=== PATIENT | male | born 1965 | race Caucasian/White ===

== ENCOUNTER 2022-01-05 00:40 | Emergency (ER) | payer MEDICARE, SELFPAY ==
[2022-01-05 01:00] VITALS: BP 137/75; PULSE 70; RESP 16; TEMP 35.9; O2SAT 100; BMI 19.5
--- NOTE | 2022-01-05 02:14 | ED.SKABFB ---
HPI - Skin/Abscess/Foreign Bdy General Chief complaint: Skin/Abscess/Foreign Body Stated complaint: right elbow pain/insect bite x2 days Time Seen by Provider: 01/05/22 02:03 Source: patient Mode of arrival: Ambulatory History of Present Illness HPI narrative: 56-year-old male nonsmoker with noncontributory medical history presents with pain and swelling on his right elbow in concerned about a spider bite. He denies seeing any insect and denies any injury. He has no fever or chills. States that he has been getting some pus out and when he squeezes there is little coming at this point. He is able to flex and extend his elbow without much in the way of discomfort. He denies any fever, chills, nausea or vomiting nor any red streaks. He is otherwise well and free of complaint. He denies dizziness, weakness or lightheadedness. He has no chest pain or shortness of breath Related Data Home Medications Medication Instructions Recorded Confirmed clonazepam 0.5 mg tablet 1 mg PO BID #0 07/27/11 Previous Rx's Medication Instructions Recorded doxycycline hyclate 100 mg tablet 100 mg PO BID #20 tab 01/05/22 Allergies Allergy/AdvReac Type Severity Reaction Status Date / Time From TORADOL Allergy Unknown STOMACH Uncoded 01/05/22 01:03 UPSET Review of Systems Review of Systems Narrative: GENERAL: Denies chills, fatigue, malaise, fever, sweats. HEENT: Denies sinus pain, ear pain, sore throat, difficulty swallowing, dizziness. RESPIRATORY: Denies dyspnea, cough, wheezing, hemoptysis, sputum. CARDIOVASCULAR: Denies chest pain, palpitations, orthopnea, edema, GASTROINTESTINAL: Denies nausea, vomiting, abdominal pain, diarrhea, constipation, melena. : Denies dysuria, frequency, incontinence, hematuria, urinary retention. MUSCULOSKELETAL: denies weakness, joint pain, or bony pain SKIN: See HPI NEUROLOGIC: Denies weakness, headache, numbness, change in speech, confusion, seizures, incoordination. PSYCHIATRIC: No concerning psychosocial issues. 12 point review of systems is negative except for those stated above Patient History Social History Smoking Status: Never smoker Smoking Status: Never smoker Substance Use Type: former substance user Exam Narrative Exam Narrative: GEN: AOx3 and in mild distress EYES: Pupils are equal, round, and reactive to light and accommodation. Extraoccular muscles are intact bilaterally. There is no subconjunctival hemorrhage or exudate. CHEST: Lungs are clear to auscultation bilaterally and free of wheezes, rales, or rhonchi. Heart rate is regular rhythm, there are no murmurs, clicks, rubs, or gallops. There is no chest wall tenderness. ABD: Abdomen is soft and nontender. There is no guarding or rebound. Bowel sounds are normal in all 4 quadrants. There is no mass or organomegaly. EXT: Full but slightly painful flexion and extension of right elbow at the extremes of range of motion, no pain with pronation or supination, erythema and mild swelling overlying the olecranon with a spontaneously draining abscess and moderate surrounding erythema without fluctuance or induration. Very low suspicion of septic arthritis, no lymphangitis noted SKIN: Warm, pink, and dry. No erythema or rash Initial Vital Signs Initial Vital Signs: Vital Signs Temperature 96.7 F L 01/05/22 01:00 Pulse Rate 70 01/05/22 01:00 Respiratory Rate 16 01/05/22 01:00 Blood Pressure 137/75 01/05/22 01:00 Pulse Oximetry 100 01/05/22 01:00 Course Orders Ordered: Discontinued Medications Doxycycline Hyclate (Doxycycline Hyclate 100 Mg Tablet) 100 mg PO NOW ONE Stop: 01/05/22 02:19 Last Admin: 01/05/22 02:23 Dose: 100 mg Documented by: BRAYAN Vital Signs Vital signs: Vital Signs - 8 hr 01/05/22 01:00 Temperature 96.7 F L Pulse Rate 70 Respiratory Rate 16 Blood Pressure 137/75 Pulse Oximetry 100 MDM - Skin/Abscess/Foreign Bdy MDM Narrative Medical decision making narrative: Patient presents for evaluation of spontaneously draining abscess on right elbow. History and physical are highly suggestive against septic arthritis. He shows no systemic findings and has no lymphangitis. Wound culture obtained, ABX administered here and remainder or Rx to pharmacy. Return precautions discussed and questions answered to his apparent satisfaction Discharge Plan Departure Patient Disposition: Home Clinical Impression: Abscess of skin or subcutaneous tissue Instructions: DI for Skin Abscess Activity Restrictions/Additional Instructions: *You have been diagnosed with [right elbow abscess, spontaneously draining. As we discussed a wound culture has been sent and will take a few days to give results, if there is a change needed we will call you *What to do: *Please continue to take your regular medications as directed. [ x] New medication prescriptions sent to your pharmacy: [[facility] in [place] ] [ ] New medication written as a paper prescription [ ] No new medications given *Please follow up with your primary care provider in 2-3 days, call for an appointment. Let them know you were seen in the Emergency Department and that we ask that you be seen in follow up. We will electronically transmit a record of today's note if your PCP is in our system *If you do not have a primary care provider please contact the [facility] Resource line at [phone]. They will ask some questions about your medical history and help get you set up with a doctor in the community. *Return to Emergency Department if you should have any new, worsening or concerning symptoms, such as [fever greater than 101 F, shaking chills, worsening pain, persistent vomiting or other bothersome symptoms] Prescriptions: New doxycycline hyclate 100 mg tablet 100 mg PO BID Qty: 20 0RF No Action clonazepam 0.5 MG tablet 1 mg PO BID Qty: 0 0RF
[2022-01-05] MEDS: DOXYCYCLINE HYCLATE 100 MG TABLET PO (02:23)
== END 2022-01-05 02:28 | disposition home or self-care (01) ==
PROVIDERS: Emergency Provider Emergency Medicine
DX: L02.413 Cutaneous abscess of right upper limb (principal)
CPT/HCPCS: 87070; 87075; 87077; 87147; 87205; 99283

== ENCOUNTER 2022-01-08 13:25 | Observation (INO) | payer MEDICARE, MEDICAID, SELFPAY ==
[2022-01-08 13:28] VITALS: BP 115/73; PULSE 92; RESP 20; TEMP 36.6; O2SAT 99
--- NOTE | 2022-01-08 14:34 | ED_ITS ---
HPI - Skin/Abscess/Foreign Bdy General Chief complaint: Skin/Abscess/Foreign Body Stated complaint: Infection in arm getting worse- told to come back Time Seen by Provider: 01/08/22 13:56 Source: patient Mode of arrival: Ambulatory Related Data Home Medications Medication Instructions Recorded Confirmed clonazepam 0.5 mg tablet 1 mg PO BID #0 07/27/11 Previous Rx's Medication Instructions Recorded doxycycline hyclate 100 mg tablet 100 mg PO BID #20 tab 01/05/22 Allergies Allergy/AdvReac Type Severity Reaction Status Date / Time From TORADOL Allergy Unknown STOMACH Uncoded 01/05/22 01:03 UPSET Patient History Social History Smoking Status: Never smoker Smoking Status: Never smoker Substance Use Type: former substance user Exam Initial Vital Signs Initial Vital Signs: Vital Signs Temperature 97.8 F 01/08/22 13:28 Pulse Rate 92 H 01/08/22 13:28 Respiratory Rate 20 01/08/22 13:28 Blood Pressure 115/73 01/08/22 13:28 Pulse Oximetry 99 01/08/22 13:28 Course Orders Ordered: ED Orders 01/08/22 14:40 CBC Auto Diff [Complete Blood Count AUTO DIFF] Stat CK [Creatine Kinase] Stat CMP [Comprehensive Metabolic Panel] Stat Lactate (Lactic Acid) Stat PT [Prothrombin Time INR] Stat PTT [Partial Thromboplastin Time] Stat 01/08/22 14:52 Blood Culture Stat 01/08/22 15:10 Wound Culture and Gram Stain Stat 01/08/22 16:25 CT UE RT w con Stat 01/08/22 17:40 COVID19 -Nasal RAPID/Pre-Proc Stat Discontinued Medications Ceftriaxone Sodium 1,000 mg/ (Sodium Chloride) 100 mls @ 200 mls/hr IV NOW ONE Stop: 01/08/22 14:43 Last Infusion: 01/08/22 15:48 Dose: 0 mls/hr Documented by: Admin: 01/08/22 15:22 Dose: 200 mls/hr Documented by: GATO Vancomycin HCl (Vancomycin) 1,000 mg in 200 mls @ 200 mls/hr IV NOW ONE Stop: 01/08/22 15:43 Last Infusion: 01/08/22 16:31 Dose: 0 mls/hr Documented by: Admin: 01/08/22 15:49 Dose: 200 mls/hr Documented by: GATO Vital Signs Vital signs: Vital Signs - 8 hr 01/08/22 13:28 Temperature 97.8 F Pulse Rate 92 H Respiratory Rate 20 Blood Pressure 115/73 Pulse Oximetry 99 MDM - Skin/Abscess/Foreign Bdy Lab Data Result diagrams: 01/08/22 14:40 01/08/22 14:40 Labs: Lab Results 01/08/22 01/08/22 01/08/22 Range/Units 14:40 14:40 14:40 WBC 5.8 (4.5-11.0) X10^3/uL RBC 4.73 (4.5-5.9) X10^6/uL Hgb 13.0 L (13.5-17.5) g/dL Hct 39.2 L (41-53) % MCV 82.9 (80-100) fL MCH 27.4 (26-34) PG MCHC 33.1 (30-36) % RDW 14.0 (11.6-14.8) % Plt Count 208 (150-400) X10^3/uL Neut % (Auto) 72.0 (50-75) % Lymph % (Auto) 13.1 L (25-40) % Craven % (Auto) 11.1 (3-14) % Eos % (Auto) 3.4 (2-4) % Baso % (Auto) 0.4 (0-2) % Neut # (Auto) 4200 (0619-7980) /uL Lymph # (Auto) 800 L (7141-4195) /uL Craven # (Auto) 600 (0-900) /uL Eos # (Auto) 200 (0-450) /uL Baso # (Auto) 0 (0-100) /uL PT (10.1-12.7) SECONDS INR (0.9-1.3) APTT (26.4-36.2) SECONDS Sodium 138 (137-145) mmol/L Potassium 3.8 (3.4-5.1) mmol/L Chloride 101 (98-107) mmol/L Carbon Dioxide 31 (22-32) mmol/L BUN 17 (9-20) mg/dL Creatinine 0.53 L (0.66-1.25) mg/dL Estimated GFR > 60 (>60) mL/min BUN/Creatinine Ratio 32.1 H (6-22) Glucose 114 H (70-100) mg/dL Lactate 0.9 (0.7-2.1) mmol/L Calcium 8.8 (8.4-10.2) mg/dL Total Bilirubin 0.2 (0.2-1.3) mg/dL AST 25 (17-59) IU/L ALT 16 (<50) IU/L Alkaline Phosphatase 68 (38-126) U/L Total Creatine Kinase (55-170) U/L Total Protein 6.8 (6.3-8.2) g/dL Albumin 3.5 (3.5-5.0) g/dL Globulin 3.3 (1.7-4.1) g/dL Albumin/Globulin Ratio 1.1 (1.0-2.8) 01/08/22 01/08/22 Range/Units 14:40 14:40 WBC (4.5-11.0) X10^3/uL RBC (4.5-5.9) X10^6/uL Hgb (13.5-17.5) g/dL Hct (41-53) % MCV (80-100) fL MCH (26-34) PG MCHC (30-36) % RDW (11.6-14.8) % Plt Count (150-400) X10^3/uL Neut % (Auto) (50-75) % Lymph % (Auto) (25-40) % Craven % (Auto) (3-14) % Eos % (Auto) (2-4) % Baso % (Auto) (0-2) % Neut # (Auto) (8363-2203) /uL Lymph # (Auto) (6712-1370) /uL Craven # (Auto) (0-900) /uL Eos # (Auto) (0-450) /uL Baso # (Auto) (0-100) /uL PT 12.3 (10.1-12.7) SECONDS INR 1.1 (0.9-1.3) APTT 34 (26.4-36.2) SECONDS Sodium (137-145) mmol/L Potassium (3.4-5.1) mmol/L Chloride (98-107) mmol/L Carbon Dioxide (22-32) mmol/L BUN (9-20) mg/dL Creatinine (0.66-1.25) mg/dL Estimated GFR (>60) mL/min BUN/Creatinine Ratio (6-22) Glucose (70-100) mg/dL Lactate (0.7-2.1) mmol/L Calcium (8.4-10.2) mg/dL Total Bilirubin (0.2-1.3) mg/dL AST (17-59) IU/L ALT (<50) IU/L Alkaline Phosphatase (38-126) U/L Total Creatine Kinase 53 L (55-170) U/L Total Protein (6.3-8.2) g/dL Albumin (3.5-5.0) g/dL Globulin (1.7-4.1) g/dL Albumin/Globulin Ratio (1.0-2.8) Discharge Plan Departure Patient Disposition: Admitted As Inpatient Clinical Impression: Cellulitis Admit Date/Time: 01/08/22 17:44 Admit Provider: Rafi Cohen
[2022-01-08 15:08] LABS: Add Manual Diff / Slide Review NO; Basophils Absolute Auto 0 /uL (0-100); Basophils Percent Auto 0.4 % (0-2); Eosinophils Absolute Auto 200 /uL (0-450); Eosinophils Percent Auto 3.4 % (2-4); Hematocrit 39.2 % (41-53); Lymphocytes Absolute Auto 800 /uL (1100-4500); Lymphocytes Percent Auto 13.1 % (25-40); Mean Corpuscular HGB Conc 33.1 % (30-36); Mean Corpuscular Hemoglobin 27.4 PG (26-34); Mean Corpuscular Volume 82.9 fL (80-100); Monocytes Absolute Auto 600 /uL (0-900); Monocytes Percent Auto 11.1 % (3-14); Neutrophils Absolute Auto 4200 /uL (1500-7000); Platelet Count 208 X10^3/uL (150-400); Red Blood Cell Count 4.73 X10^6/uL (4.5-5.9); White Blood Cell Count 5.8 X10^3/uL (4.5-11.0)
[2022-01-08 15:10] LABS: INR 1.1 (0.9-1.3); Prothrombin Time 12.3 SECONDS (10.1-12.7)
[2022-01-08 15:13] LABS: PTT Partial Thromboplastin Tim 34 SECONDS (26.4-36.2)
[2022-01-08 15:14] LABS: Lactate (Lactic Acid) 0.9 mmol/L (0.7-2.1)
[2022-01-08 15:15] LABS: Alanine Aminotransferase 16 IU/L (<50); Albumin 3.5 g/dL (3.5-5.0); Albumin Globulin Ratio 1.1 (1.0-2.8); Alkaline Phosphatase 68 U/L (38-126); Aspartate Aminotransferase 25 IU/L (17-59); BUN Creatinine Ratio 32.1 (6-22); Bilirubin Total 0.2 mg/dL (0.2-1.3); Blood Urea Nitrogen 17 mg/dL (9-20); Calcium 8.8 mg/dL (8.4-10.2); Carbon Dioxide 31 mmol/L (22-32); Chloride 101 mmol/L (98-107); Estimated Glomerular Filt Rate > 60 mL/min (>60); Globulin 3.3 g/dL (1.7-4.1); Glucose 114 mg/dL (70-100); HEMOLYSIS < 15 (0-50); Potassium 3.8 mmol/L (3.4-5.1); Sodium 138 mmol/L (137-145); Total Protein 6.8 g/dL (6.3-8.2)
[2022-01-08 15:22] LABS: Creatine Kinase 53 U/L (55-170)
[2022-01-08] MEDS: cefTRIAXone 1,000 MG in SODIUM CHLORIDE 0.9% 100 ML 200 MG IV (15:22)
--- NOTE | 2022-01-08 15:47 | ED.SKABFB ---
HPI - Skin/Abscess/Foreign Bdy <Kimi Copeland PA-C - Last Filed: 01/08/22 17:50> General Chief complaint: Skin/Abscess/Foreign Body Stated complaint: Infection in arm getting worse- told to come back Time Seen by Provider: 01/08/22 13:56 Source: patient Mode of arrival: Ambulatory History of Present Illness HPI narrative: 56-year-old male on Suboxone for opiate use disorder presents to the ED with worsening signs of infection on his right arm. Patient was seen in the ED on 01/05/2022 for the skin infection on the right elbow, discharged home on doxycycline. Patient states he has been taking the antibiotics as prescribed, however his symptoms are worsening. Patient believes he was bitten by an insect, however he did not see the insect. Patient complains of continued drainage of pus at the site of the bite and increased swelling, redness, pain going down from his elbow to his right hand. Patient denies fever, endorses chills. Patient denies chest pain, shortness of breath, nausea, vomiting, abdominal pain, lightheadedness, dizziness, syncope. States that the pain is keeping him from being able to sleep night. Related Data Home Medications Medication Instructions Recorded Confirmed clonazepam 0.5 mg tablet 1 mg PO BID #0 07/27/11 Previous Rx's Medication Instructions Recorded doxycycline hyclate 100 mg tablet 100 mg PO BID #20 tab 01/05/22 Allergies Allergy/AdvReac Type Severity Reaction Status Date / Time From TORADOL Allergy Unknown STOMACH Uncoded 01/05/22 01:03 UPSET Review of Systems <Kimi Copeland PA-C - Last Filed: 01/08/22 17:50> Review of Systems ROS Unobtainable: All systems reviewed & are unremarkable except as noted in HPI and below Constitutional Constitutional: Reports chills, Denies fatigue, Denies fever(s), Denies frequent falls, Denies lethargy and Denies weakness Eyes Eyes: Denies change in vision, Denies eye discharge, Denies irritation and Denies loss of vision ENT Ears, Nose, Mouth, and Throat: Denies change in voice, Denies dizziness, Denies neck pain, Denies sore throat and Denies throat swelling Cardiovascular Cardiovascular: Denies chest pain, Denies irregular heart rhythm, Denies lightheadedness, Denies palpitations, Denies dyspnea, Denies dyspnea on exertion and Denies orthopnea Respiratory Respiratory: Denies cough, Denies dyspnea, Denies dyspnea on exertion and Denies wheezing Gastrointestinal Gastrointestinal: Denies abdominal pain, Denies change in bowel habits, Denies diarrhea, Denies nausea and Denies vomiting Genitourinary Genitourinary: Denies hematuria, Denies flank pain, Denies urinary incontinence and Denies urinary urgency Musculoskeletal Musculoskeletal: Denies back pain, Denies muscle weakness, Denies neck pain, Denies numbness and Denies tingling Integumentary/Breasts Skin/Breast: Denies pruritus, Denies erythema, Denies rash and Denies wounds Comments: Swelling, redness, pain, purulent discharge on right arm. No numbness, tingling, weakness Neurologic Neurologic: Denies behavioral changes, Denies confusion, Denies dizziness, Denies frequent falls, Denies loss of vision, Denies numbness, Denies tingling and Denies weakness Psychiatric Psychiatric: Denies anxiety, Denies behavioral changes, Denies confusion, Denies depression, Denies homicidal ideation and Denies suicidal ideation Endocrine Endocrine: Denies fatigue, Denies flushing and Denies palpitations Hematologic/Lymphatic Hematologic/Lymphatic: Denies easy bruising Allergic/Immunologic Allergic/Immunologic: Denies urticaria, Denies throat swelling and Denies wheezing Patient History <Kimi Copeland PA-C - Last Filed: 01/08/22 17:50> Social History Smoking Status: Never smoker Smoking Status: Never smoker Substance Use Type: former substance user Exam <Kimi Copeland PA-C - Last Filed: 01/08/22 17:50> Initial Vital Signs Initial Vital Signs: Vital Signs Temperature 97.8 F 01/08/22 13:28 Pulse Rate 92 H 01/08/22 13:28 Respiratory Rate 20 01/08/22 13:28 Blood Pressure 115/73 01/08/22 13:28 Pulse Oximetry 99 01/08/22 13:28 Const General: cooperative, healthy appearing and comfortable [facility] Head: normal to inspection Eyes General: Yes appearance normal, both eyes and all related structures Neck Neck: normal visual inspection Resp Effort & Inspection: normal respiratory effort Auscultation: clear to auscultation bilaterally Cardio Rate: regular rate Rhythm: regular rhythm Skin Other: Purulent lesion on right elbow. Swelling, erythema, tenderness to palpation from elbow down to the right hand. Compartments are soft. Full range of motion. Neurovascularly intact. Neuro General: patient alert, patient awake and patient oriented x3 Psych Appearance: grossly normal Mental Status: mental status grossly normal <Carine Huff MD - Last Filed: 01/08/22 17:57> Initial Vital Signs Initial Vital Signs: Vital Signs Temperature 97.8 F 01/08/22 13:28 Pulse Rate 92 H 01/08/22 13:28 Respiratory Rate 20 01/08/22 13:28 Blood Pressure 115/73 01/08/22 13:28 Pulse Oximetry 99 01/08/22 13:28 Course <Kimi Copeland PA-C - Last Filed: 01/08/22 17:50> Orders Ordered: ED Orders 01/08/22 14:40 CBC Auto Diff [Complete Blood Count AUTO DIFF] Stat CK [Creatine Kinase] Stat CMP [Comprehensive Metabolic Panel] Stat Lactate (Lactic Acid) Stat PT [Prothrombin Time INR] Stat PTT [Partial Thromboplastin Time] Stat 01/08/22 14:52 Blood Culture Stat 01/08/22 15:10 Wound Culture and Gram Stain Stat 01/08/22 16:25 CT UE RT w con Stat 01/08/22 17:40 COVID19 -Nasal RAPID/Pre-Proc Stat Discontinued Medications Ceftriaxone Sodium 1,000 mg/ (Sodium Chloride) 100 mls @ 200 mls/hr IV NOW ONE Stop: 01/08/22 14:43 Last Infusion: 01/08/22 15:48 Dose: 0 mls/hr Documented by: Admin: 01/08/22 15:22 Dose: 200 mls/hr Documented by: GATO Vancomycin HCl (Vancomycin) 1,000 mg in 200 mls @ 200 mls/hr IV NOW ONE Stop: 01/08/22 15:43 Last Infusion: 01/08/22 16:31 Dose: 0 mls/hr Documented by: Admin: 01/08/22 15:49 Dose: 200 mls/hr Documented by: GATO Vital Signs Vital signs: Vital Signs - 8 hr 01/08/22 13:28 Temperature 97.8 F Pulse Rate 92 H Respiratory Rate 20 Blood Pressure 115/73 Pulse Oximetry 99 <Carine Huff MD - Last Filed: 01/08/22 17:57> Orders Ordered: ED Orders 01/08/22 14:40 CBC Auto Diff [Complete Blood Count AUTO DIFF] Stat CK [Creatine Kinase] Stat CMP [Comprehensive Metabolic Panel] Stat Lactate (Lactic Acid) Stat PT [Prothrombin Time INR] Stat PTT [Partial Thromboplastin Time] Stat 01/08/22 14:52 Blood Culture Stat 01/08/22 15:10 Wound Culture and Gram Stain Stat 01/08/22 16:25 CT UE RT w con Stat 01/08/22 17:40 COVID19 -Nasal RAPID/Pre-Proc Stat Discontinued Medications Ceftriaxone Sodium 1,000 mg/ (Sodium Chloride) 100 mls @ 200 mls/hr IV NOW ONE Stop: 01/08/22 14:43 Last Infusion: 01/08/22 15:48 Dose: 0 mls/hr Documented by: Admin: 01/08/22 15:22 Dose: 200 mls/hr Documented by: GATO Vancomycin HCl (Vancomycin) 1,000 mg in 200 mls @ 200 mls/hr IV NOW ONE Stop: 01/08/22 15:43 Last Infusion: 01/08/22 16:31 Dose: 0 mls/hr Documented by: Admin: 01/08/22 15:49 Dose: 200 mls/hr Documented by: GATO Vital Signs Vital signs: Vital Signs - 8 hr 01/08/22 13:28 Temperature 97.8 F Pulse Rate 92 H Respiratory Rate 20 Blood Pressure 115/73 Pulse Oximetry 99 MDM - Skin/Abscess/Foreign Bdy <Kimi Copeland PA-C - Last Filed: 01/08/22 17:50> Medical Records Attestation: I reviewed the patient's medical records. Lab Data Attestation: I reviewed the patient's lab results. Lab results narrative: Labs within normal limits. Result diagrams: 01/08/22 14:40 01/08/22 14:40 Labs: Lab Results 01/08/22 01/08/22 01/08/22 Range/Units 14:40 14:40 14:40 WBC 5.8 (4.5-11.0) X10^3/uL RBC 4.73 (4.5-5.9) X10^6/uL Hgb 13.0 L (13.5-17.5) g/dL Hct 39.2 L (41-53) % MCV 82.9 (80-100) fL MCH 27.4 (26-34) PG MCHC 33.1 (30-36) % RDW 14.0 (11.6-14.8) % Plt Count 208 (150-400) X10^3/uL Neut % (Auto) 72.0 (50-75) % Lymph % (Auto) 13.1 L (25-40) % [place] % (Auto) 11.1 (3-14) % Eos % (Auto) 3.4 (2-4) % Baso % (Auto) 0.4 (0-2) % Neut # (Auto) 4200 (6860-9543) /uL Lymph # (Auto) 800 L (5776-2657) /uL [place] # (Auto) 600 (0-900) /uL Eos # (Auto) 200 (0-450) /uL Baso # (Auto) 0 (0-100) /uL PT (10.1-12.7) SECONDS INR (0.9-1.3) APTT (26.4-36.2) SECONDS Sodium 138 (137-145) mmol/L Potassium 3.8 (3.4-5.1) mmol/L Chloride 101 (98-107) mmol/L Carbon Dioxide 31 (22-32) mmol/L BUN 17 (9-20) mg/dL Creatinine 0.53 L (0.66-1.25) mg/dL Estimated GFR > 60 (>60) mL/min BUN/Creatinine Ratio 32.1 H (6-22) Glucose 114 H (70-100) mg/dL Lactate 0.9 (0.7-2.1) mmol/L Calcium 8.8 (8.4-10.2) mg/dL Total Bilirubin 0.2 (0.2-1.3) mg/dL AST 25 (17-59) IU/L ALT 16 (<50) IU/L Alkaline Phosphatase 68 (38-126) U/L Total Creatine Kinase (55-170) U/L Total Protein 6.8 (6.3-8.2) g/dL Albumin 3.5 (3.5-5.0) g/dL Globulin 3.3 (1.7-4.1) g/dL Albumin/Globulin Ratio 1.1 (1.0-2.8) 01/08/22 01/08/22 Range/Units 14:40 14:40 WBC (4.5-11.0) X10^3/uL RBC (4.5-5.9) X10^6/uL Hgb (13.5-17.5) g/dL Hct (41-53) % MCV (80-100) fL MCH (26-34) PG MCHC (30-36) % RDW (11.6-14.8) % Plt Count (150-400) X10^3/uL Neut % (Auto) (50-75) % Lymph % (Auto) (25-40) % [place] % (Auto) (3-14) % Eos % (Auto) (2-4) % Baso % (Auto) (0-2) % Neut # (Auto) (4888-8266) /uL Lymph # (Auto) (9873-2419) /uL [place] # (Auto) (0-900) /uL Eos # (Auto) (0-450) /uL Baso # (Auto) (0-100) /uL PT 12.3 (10.1-12.7) SECONDS INR 1.1 (0.9-1.3) APTT 34 (26.4-36.2) SECONDS Sodium (137-145) mmol/L Potassium (3.4-5.1) mmol/L Chloride (98-107) mmol/L Carbon Dioxide (22-32) mmol/L BUN (9-20) mg/dL Creatinine (0.66-1.25) mg/dL Estimated GFR (>60) mL/min BUN/Creatinine Ratio (6-22) Glucose (70-100) mg/dL Lactate (0.7-2.1) mmol/L Calcium (8.4-10.2) mg/dL Total Bilirubin (0.2-1.3) mg/dL AST (17-59) IU/L ALT (<50) IU/L Alkaline Phosphatase (38-126) U/L Total Creatine Kinase 53 L (55-170) U/L Total Protein (6.3-8.2) g/dL Albumin (3.5-5.0) g/dL Globulin (1.7-4.1) g/dL Albumin/Globulin Ratio (1.0-2.8) Imaging Data CT right upper extremity: Radiologist's Impression: PROCEDURE:? CT UE RT W CON ? INDICATIONS:? ?septic arthritis vs nec fasc vs cellulitis vs bur ? TECHNIQUE:? After the administration of intravenous contrast, 3 mm axial sections acquired of the right upper extremity , with coronal and sagittal reformats. ? ? COMPARISON:? None. ? FINDINGS:? Image quality:? Excellent.? ? Bones:? No acute fracture dislocation.? No osteomyelitis. ? Soft tissues:? Diffuse cellulitic change, left forearm greater than left upper arm.? No soft tissue gas.? No radiopaque foreign body.? No abscess. ? IMPRESSION:? Diffuse cellulitic change.? No evidence of necrotizing fasciitis or abscess. ? ? Dictated by: Caleb Heaton M.D. on 01/08/2022 at 17:12 ? ? Approved by: Caleb Heaton M.D. on 01/08/2022 at 17:15 ? [facility] Narrative Medical decision making narrative: 56-year-old male on Suboxone for opiate use disorder presents to the ED with worsening signs of infection on his right arm. Concern for cellulitis versus septic joint versus septic bursitis. Unlikely necrotizing fasciitis, given physical exam and history. Compartments are soft. Will obtain labs, blood cultures, wound culture, CT with contrast. Will start antibiotics. Will consult Ortho. Will reassess. Labs within normal limits. CT scan was reassuring for no osteomyelitis, soft tissue gas, abscess, foreign body, necritizing fasciitis. CT shows evidence of cellulitic changes. Dr. Sanchez from Ortho was consulted. Per Dr. Sanchez, patient to be NPO after midnight, continue IV antibiotics with vancomycin and ceftriaxone. Dr. Sanchez will see patient for possible OR washout tomorrow morning. Consulted hospitalist Dr. Dempsey, he agreed to admit patient to medicine for continued IV antibiotics. <Carine Huff MD - Last Filed: 01/08/22 17:57> Lab Data Labs: Lab Results 01/08/22 01/08/22 01/08/22 Range/Units 14:40 14:40 14:40 WBC 5.8 (4.5-11.0) X10^3/uL RBC 4.73 (4.5-5.9) X10^6/uL Hgb 13.0 L (13.5-17.5) g/dL Hct 39.2 L (41-53) % MCV 82.9 (80-100) fL MCH 27.4 (26-34) PG MCHC 33.1 (30-36) % RDW 14.0 (11.6-14.8) % Plt Count 208 (150-400) X10^3/uL Neut % (Auto) 72.0 (50-75) % Lymph % (Auto) 13.1 L (25-40) % [place] % (Auto) 11.1 (3-14) % Eos % (Auto) 3.4 (2-4) % Baso % (Auto) 0.4 (0-2) % Neut # (Auto) 4200 (5115-8459) /uL Lymph # (Auto) 800 L (1182-3064) /uL [place] # (Auto) 600 (0-900) /uL Eos # (Auto) 200 (0-450) /uL Baso # (Auto) 0 (0-100) /uL PT (10.1-12.7) SECONDS INR (0.9-1.3) APTT (26.4-36.2) SECONDS Sodium 138 (137-145) mmol/L Potassium 3.8 (3.4-5.1) mmol/L Chloride 101 (98-107) mmol/L Carbon Dioxide 31 (22-32) mmol/L BUN 17 (9-20) mg/dL Creatinine 0.53 L (0.66-1.25) mg/dL Estimated GFR > 60 (>60) mL/min BUN/Creatinine Ratio 32.1 H (6-22) Glucose 114 H (70-100) mg/dL Lactate 0.9 (0.7-2.1) mmol/L Calcium 8.8 (8.4-10.2) mg/dL Total Bilirubin 0.2 (0.2-1.3) mg/dL AST 25 (17-59) IU/L ALT 16 (<50) IU/L Alkaline Phosphatase 68 (38-126) U/L Total Creatine Kinase (55-170) U/L Total Protein 6.8 (6.3-8.2) g/dL Albumin 3.5 (3.5-5.0) g/dL Globulin 3.3 (1.7-4.1) g/dL Albumin/Globulin Ratio 1.1 (1.0-2.8) 01/08/22 01/08/22 Range/Units 14:40 14:40 WBC (4.5-11.0) X10^3/uL RBC (4.5-5.9) X10^6/uL Hgb (13.5-17.5) g/dL Hct (41-53) % MCV (80-100) fL MCH (26-34) PG MCHC (30-36) % RDW (11.6-14.8) % Plt Count (150-400) X10^3/uL Neut % (Auto) (50-75) % Lymph % (Auto) (25-40) % [place] % (Auto) (3-14) % Eos % (Auto) (2-4) % Baso % (Auto) (0-2) % Neut # (Auto) (7800-2860) /uL Lymph # (Auto) (0284-8902) /uL [place] # (Auto) (0-900) /uL Eos # (Auto) (0-450) /uL Baso # (Auto) (0-100) /uL PT 12.3 (10.1-12.7) SECONDS INR 1.1 (0.9-1.3) APTT 34 (26.4-36.2) SECONDS Sodium (137-145) mmol/L Potassium (3.4-5.1) mmol/L Chloride (98-107) mmol/L Carbon Dioxide (22-32) mmol/L BUN (9-20) mg/dL Creatinine (0.66-1.25) mg/dL Estimated GFR (>60) mL/min BUN/Creatinine Ratio (6-22) Glucose (70-100) mg/dL Lactate (0.7-2.1) mmol/L Calcium (8.4-10.2) mg/dL Total Bilirubin (0.2-1.3) mg/dL AST (17-59) IU/L ALT (<50) IU/L Alkaline Phosphatase (38-126) U/L Total Creatine Kinase 53 L (55-170) U/L Total Protein (6.3-8.2) g/dL Albumin (3.5-5.0) g/dL Globulin (1.7-4.1) g/dL Albumin/Globulin Ratio (1.0-2.8) Discharge Plan Departure Patient Disposition: Admitted As Inpatient Clinical Impression: Cellulitis Admit Date/Time: 01/08/22 17:44 Admit Provider: Rafi Cohen <Carine Huff MD - Last Filed: 01/08/22 17:57> Cosign ED Attending Cosignature Attestation: I was immediately available in the department for consultation throughout this patient's visit. I agree with documentation as above. Carine Huff MD
[2022-01-08] MEDS: VANCOMYCIN 1,000 MG/200 ML PIGGYBACK 200 MG IV (15:49)
--- NOTE | 2022-01-08 16:25 | DI.CT.S_ITS ---
PROCEDURE: CT UE RT W CON INDICATIONS: ?septic arthritis vs nec fasc vs cellulitis vs bur TECHNIQUE: After the administration of intravenous contrast, 3 mm axial sections acquired of the right upper extremity , with coronal and sagittal reformats. COMPARISON: None. FINDINGS: Image quality: Excellent. Bones: No acute fracture dislocation. No osteomyelitis. Soft tissues: Diffuse cellulitic change, left forearm greater than left upper arm. No soft tissue gas. No radiopaque foreign body. No abscess. IMPRESSION: Diffuse cellulitic change. No evidence of necrotizing fasciitis or abscess. Dictated by: Caleb Heaton M.D. on 01/08/2022 at 17:12 Approved by: Caleb Heaton M.D. on 01/08/2022 at 17:15
[2022-01-08 18:07] LABS: COVID19 -Nasal RAPID Negative (Negative)
[2022-01-08 18:11] VITALS: BP 121/75; PULSE 69; RESP 22; O2SAT 98
[2022-01-08 18:30] VITALS: BMI 21.6
[2022-01-08 20:20] VITALS: BP 123/71; PULSE 65; RESP 19; TEMP 36.4; O2SAT 100
--- NOTE | 2022-01-08 20:22 | P.HP_ITS ---
History of Present Illness History of Present Illness Date Patient Seen: 01/08/22 Chief complaint: Infection in arm getting worse- told to come back Narrative: THIS IS A 56-YEAR-OLD MALE WITH A PAST MEDICAL HISTORY SIGNIFICANT FOR ILLICIT DRUG USE DENIES ANY HISTORY OF CAD, PRIOR STROKE, DIABETES, HYPERTENSION, KIDNEY DISEASE. HE PRESENTED TO THE HOSPITAL REPORTING SWELLING TO THE RIGHT FOREARM HE WAS TREATED WITH DOXYCYCLINE AND SENT HOME A COUPLE OF DAYS AGO. HE CAME BACK TODAY WITH WORSENING SWELLING. REDNESS APPRECIATED WELL. INCREASING PAIN TO THE RIGHT FOREARM. PATIENT DENIES ANY RECENT INJURIES. HE ALSO DENIES ANY INSECT/ANIMAL BITES. IN ANY CASE, IN THE ER HIS LABS ARE FAIRLY STABLE HOWEVER NOTICEABLE SWELLING NOTED TO THE RIGHT FOREARM WHICH PROMPTED A CT SCAN TO BE ORDERED. THE CT SCAN WAS NEGATIVE FOR ANY COLLECTION OF FLUID. ALSO NEGATIVE FOR ANY GUSMAN BCUTANEOUS EMPHYSEMA. HE WAS REFERRED TO ORTHOPEDIC SURGERY HOME WHOM WOULD SEE THE PATIENT ON CONSULT PAST MEDICAL HISTORY NONE PAST SURGICAL HISTORY REPORTED SOMETIMES HER KNEE SURGERY SOCIAL HISTORY TOBACCO ABUSE AND ALCOHOL ABUSE REPORTED. PATIENT ALSO REPORTED PRIOR HISTORY OF ILLICIT DRUG USE. FAMILY HISTORY DIABETES AND HYPERTENSION REPORTED. Patient History Family & Social History Social History: household members friend(s) Prior Living Arrangements House Safety & Behavioral: Feels Safe in Current Yes Environment Been Physically Hurt or No Threatened By a Person Tobacco & Substance use: Smoking Status Never smoker alcohol intake former Substance Use Type former substance user Meds Home Medications and Allergies Home Medications Medication Instructions Recorded Confirmed Type clonazepam 0.5 mg tablet 1 mg PO BID #0 07/27/11 History doxycycline hyclate 100 mg tablet 100 mg PO BID #20 tab 01/05/22 Rx Allergies Allergy/AdvReac Type Severity Reaction Status Date / Time From TORADOL Allergy Unknown STOMACH Uncoded 01/05/22 01:03 UPSET Review of Systems Review of Systems Narrative: NEGATIVE UNLESS NOTED ABOVE IN HPI Exam Vital Signs (past 8 hours): - 01/08/22 13:28 01/08/22 18:11 01/08/22 20:20 Temperature 97.8 F 97.5 F L Pulse Rate 92 H 69 65 Respiratory Rate 20 22 19 Blood Pressure 115/73 121/75 123/71 Pulse Oximetry 99 98 100 Oxygen Delivery Method Room Air Narrative Exam Narrative: NO ACUTE DISTRESS. PATIENT IS ALERT ORIENTED X3. MOUTH : POOR DENTITION. MUCOUS MEMBRANES HEAD ATRAUMATIC NORMOCEPHALIC NECK : SUPPLE WITHOUT ADENOPATHY NO CAROTID BRUITS EYE: EOMI, PERRLA, NORMAL CONJUNCTIVA; NO JAUNDICE CHEST: REGULAR RATE. NO RUBS. PMI IS NON DISPLACED. NO MURMURS; NORMAL S1- S2 PULMONARY: DECREASED BS OVER THE BASES. MILD BIBASILAR CRACKLES NOTED; NO INCREASED DULLNESS TO PERCUSSION ABDOMEN: SOFT. NONTENDER. NONDISTENDED. BOWEL SOUNDS ARE PRESENT IN ALL 4 QUADRANTS. NO MASS. EXTREMITIES: SWELLING NOTED TO THE RIGHT FOREARM. MILDLY TENDER TO TOUCH UP TO THE ELBOW. NO OPEN WOUNDS. SENSATION IS INTACT TO THE DISTAL EXTREMITY. NEURO: CRANIAL NERVES 2-12 GROSSLY INTACT. NO FOCAL NEUROLOGICAL DEFICIT NOTED. MSK: NORMAL RANGE OF MOTION FOR AGE. NO JOINT EFFUSION. SKIN: REDNESS NOTED TO THE RIGHT FOREARM. OPEN WOUNDS. : NORMAL EXTERNAL GENITALIA. PSYCH : APPROPRIATE MOOD AND AFFECT. ALERT AWAKE ORIENTED X3 Objective Labs Result Diagrams: 01/08/22 14:40 01/08/22 14:40 Labs: Laboratory Results - last 24 hr 01/08/22 01/08/22 01/08/22 14:40 14:40 14:40 WBC 5.8 RBC 4.73 Hgb 13.0 L Hct 39.2 L MCV 82.9 MCH 27.4 MCHC 33.1 RDW 14.0 Plt Count 208 Neut % (Auto) 72.0 Lymph % (Auto) 13.1 L [place] % (Auto) 11.1 Eos % (Auto) 3.4 Baso % (Auto) 0.4 Neut # (Auto) 4200 Lymph # (Auto) 800 L [place] # (Auto) 600 Eos # (Auto) 200 Baso # (Auto) 0 PT INR APTT Sodium 138 Potassium 3.8 Chloride 101 Carbon Dioxide 31 BUN 17 Creatinine 0.53 L Estimated GFR > 60 BUN/Creatinine Ratio 32.1 H Glucose 114 H Lactate 0.9 Calcium 8.8 Total Bilirubin 0.2 AST 25 ALT 16 Alkaline Phosphatase 68 Total Creatine Kinase Total Protein 6.8 Albumin 3.5 Globulin 3.3 Albumin/Globulin Ratio 1.1 SARS-CoV-2 (PCR) 01/08/22 01/08/22 01/08/22 14:40 14:40 17:40 WBC RBC Hgb Hct MCV MCH MCHC RDW Plt Count Neut % (Auto) Lymph % (Auto) [place] % (Auto) Eos % (Auto) Baso % (Auto) Neut # (Auto) Lymph # (Auto) [place] # (Auto) Eos # (Auto) Baso # (Auto) PT 12.3 INR 1.1 APTT 34 Sodium Potassium Chloride Carbon Dioxide BUN Creatinine Estimated GFR BUN/Creatinine Ratio Glucose Lactate Calcium Total Bilirubin AST ALT Alkaline Phosphatase Total Creatine Kinase 53 L Total Protein Albumin Globulin Albumin/Globulin Ratio SARS-CoV-2 (PCR) Negative Assessment & Plan Assessment & Plan narrative: IMPRESSION CELLULITIS OF THE RIGHT UPPER FOREARM. POSSIBLE ILLICIT DRUG USE TOBACCO ABUSE PER HISTORY PLAN PATIENT TO BE EVALUATED BY ORTHOPEDIC SURGERY IN THE MORNING WILL CONSIDER REPEAT IMAGING OF THE RIGHT FOREARM IF INDICATED CLINICALLY PATIENT WILL BE STARTED ON CLINDAMYCIN AND ROCEPHIN FOR NOW WHICH SHOULD BE FAIRLY ADEQUATE WILL ASSESS IN THE MORNING AND CONSIDER VANCOMYCIN IF INDICATED CLINICALLY. COULD CONSIDER ADDING OTHER AGENTS WELL IF INDICATED REPEAT CPK LEVEL IN THE MORNING MONITOR CLOSELY FOR ANY SIGN OF COMPARTMENT SYNDROME THIS WOULD INDICATE A SURGICAL EMERGENCY DAILY LAB TO FOLLOW, CBC, CMP WILL BE ORDERED MONITOR CLOSELY FOR ANY SIGN OF DIARRHEA WHICH COULD INDICATE C DIFF COLITIS MOBILIZE PATIENT MUCH TOLERATED PAIN CONTROL WITH ORAL AND IV MEDICATIONS ADDITIONAL MANAGEMENT PER CLINICAL COURSE Time Spent With Patient Critical Care time: I spent a total of [] minutes of critical care time on this patient's care today; this time is exclusive of procedural time. Quality VTE Deep Vein Thrombosis/Pulmonary Embolism Present on Admission: No
[2022-01-08] MEDS: cefTRIAXone 2,000 MG in SODIUM CHLORIDE 0.9% 100 ML 200 MG IV (21:03)
[2022-01-08] MEDS: TRAMADOL 50 MG TABLET PO (21:08)
[2022-01-08] MEDS: ONDANSETRON 4 MG/2 ML INJ IV (21:14)
[2022-01-08] MEDS: CLINDAMYCIN 900 MG/50 ML PIGGYBACK 50 MG IV (22:10)
[2022-01-08] MEDS: ACETAMINOPHEN 325 MG TABLET 650 MG PO (22:25)
[2022-01-08 23:20] VITALS: BP 113/75; PULSE 64; RESP 18; TEMP 36.3; O2SAT 96
[2022-01-09] VITALS (10 sets, daily range): BP systolic 107–136; BP diastolic 70–95; PULSE 57–69; RESP 17–19; TEMP 35.9–36.7; O2SAT 94–99
[2022-01-09] MEDS: SODIUM CHLORIDE 0.9% 1,000 ML 100 ML IV ×2 (01:17→12:51)
[2022-01-09] MEDS: CLINDAMYCIN 900 MG/50 ML PIGGYBACK 50 MG IV ×3 (04:35→20:56)
[2022-01-09] MEDS: KETOROLAC 30 MG/ML VIAL 15 MG IV (04:42)
[2022-01-09 05:44] LABS: Add Manual Diff / Slide Review NO; Basophils Absolute Auto 0 /uL (0-100); Basophils Percent Auto 0.9 % (0-2); Eosinophils Absolute Auto 200 /uL (0-450); Eosinophils Percent Auto 4.3 % (2-4); Hematocrit 37.2 % (41-53); Hemoglobin 12.4 g/dL (13.5-17.5); Lymphocytes Absolute Auto 1200 /uL (1100-4500); Lymphocytes Percent Auto 27.6 % (25-40); Mean Corpuscular HGB Conc 33.4 % (30-36); Mean Corpuscular Hemoglobin 27.6 PG (26-34); Mean Corpuscular Volume 82.7 fL (80-100); Monocytes Absolute Auto 700 /uL (0-900); Monocytes Percent Auto 15.2 % (3-14); Neutrophils Absolute Auto 2300 /uL (1500-7000); Platelet Count 211 X10^3/uL (150-400); Red Cell Distribution Width 13.9 % (11.6-14.8); White Blood Cell Count 4.4 X10^3/uL (4.5-11.0)
[2022-01-09 05:54] LABS: Creatine Kinase 33 U/L (55-170)
[2022-01-09 05:56] LABS: Alanine Aminotransferase 14 IU/L (<50); Albumin 3.2 g/dL (3.5-5.0); Alkaline Phosphatase 60 U/L (38-126); Aspartate Aminotransferase 21 IU/L (17-59); BUN Creatinine Ratio 24.5 (6-22); Bilirubin Total 0.3 mg/dL (0.2-1.3); Blood Urea Nitrogen 12 mg/dL (9-20); Calcium 8.3 mg/dL (8.4-10.2); Carbon Dioxide 28 mmol/L (22-32); Chloride 103 mmol/L (98-107); Estimated Glomerular Filt Rate > 60 mL/min (>60); Globulin 3.2 g/dL (1.7-4.1); Glucose 102 mg/dL (70-100); HEMOLYSIS < 15 (0-50); Magnesium 2.1 mg/dL (1.6-2.3); Phosphorous 3.8 mg/dL (2.5-4.5); Potassium 3.9 mmol/L (3.4-5.1); Sodium 137 mmol/L (137-145); Total Protein 6.4 g/dL (6.3-8.2)
--- NOTE | 2022-01-09 07:49 | P.HP_ITS ---
History of Present Illness History of Present Illness Date Patient Seen: 01/09/22 Time Patient Seen: 07:50 Chief complaint: Infection in arm getting worse- told to come back Narrative: She says that she he notes be ongoing right arm pain. He was seen previously in the emergency room and placed on oral antibiotics. He has had cultures which are growing a strep.. He notes some progressive swelling in the right arm. Denies new numbness. He has not had fevers or chills. He thinks he has it might have had a bug bite and denies recent intervene as drug abuse in the right upper extremity. Patient History Family & Social History Social History: household members friend(s) Prior Living Arrangements House Safety & Behavioral: Feels Safe in Current Yes Environment Been Physically Hurt or No Threatened By a Person Tobacco & Substance use: Smoking Status Never smoker alcohol intake former Substance Use Type former substance user Meds Home Medications and Allergies Home Medications Medication Instructions Recorded Confirmed Type clonazepam 0.5 mg tablet 1 mg PO BID #0 07/27/11 History doxycycline hyclate 100 mg tablet 100 mg PO BID #20 tab 01/05/22 Rx Allergies Allergy/AdvReac Type Severity Reaction Status Date / Time From TORADOL Allergy Unknown STOMACH Uncoded 01/05/22 01:03 UPSET Review of Systems Review of Systems Narrative: Denies recent fever chills, is not filled sick other than ongoing right elbow pain. Exam Vital Signs (past 8 hours): - 01/09/22 00:14 01/09/22 04:43 Temperature 96.8 F L Pulse Rate 61 Respiratory Rate 18 Blood Pressure 107/70 Pulse Oximetry 96 97 Oxygen Delivery Method Room Air Narrative Exam Narrative: HEENT is benign lungs occasional wheeze, cor regular rate and rhythm abdomen corazon ign examination of his right upper extremity shows an open draining wound over the olecranon bursa, there is on the moderate erythema along the entire right arm, he is able to fires finger flexors and extensors and wrist flexors and extensors there is no specific subcutaneous crepitus on his right arm there is about a 1 cm wound which is just proximal to the olecranon bursa and some thickening along the olecranon bursa there is no marked bursal thickening. He Is neurologically intact distally. Objective Labs Result Diagrams: 01/09/22 05:10 01/09/22 05:10 Labs: Laboratory Results - last 24 hr 01/08/22 01/08/22 01/08/22 14:40 14:40 14:40 WBC 5.8 RBC 4.73 Hgb 13.0 L Hct 39.2 L MCV 82.9 MCH 27.4 MCHC 33.1 RDW 14.0 Plt Count 208 Neut % (Auto) 72.0 Lymph % (Auto) 13.1 L [place] % (Auto) 11.1 Eos % (Auto) 3.4 Baso % (Auto) 0.4 Neut # (Auto) 4200 Lymph # (Auto) 800 L [place] # (Auto) 600 Eos # (Auto) 200 Baso # (Auto) 0 PT INR APTT Sodium 138 Potassium 3.8 Chloride 101 Carbon Dioxide 31 BUN 17 Creatinine 0.53 L Estimated GFR > 60 BUN/Creatinine Ratio 32.1 H Glucose 114 H Lactate 0.9 Calcium 8.8 Phosphorus Magnesium Total Bilirubin 0.2 AST 25 ALT 16 Alkaline Phosphatase 68 Total Creatine Kinase Total Protein 6.8 Albumin 3.5 Globulin 3.3 Albumin/Globulin Ratio 1.1 SARS-CoV-2 (PCR) 01/08/22 01/08/22 01/08/22 14:40 14:40 17:40 WBC RBC Hgb Hct MCV MCH MCHC RDW Plt Count Neut % (Auto) Lymph % (Auto) [place] % (Auto) Eos % (Auto) Baso % (Auto) Neut # (Auto) Lymph # (Auto) [place] # (Auto) Eos # (Auto) Baso # (Auto) PT 12.3 INR 1.1 APTT 34 Sodium Potassium Chloride Carbon Dioxide BUN Creatinine Estimated GFR BUN/Creatinine Ratio Glucose Lactate Calcium Phosphorus Magnesium Total Bilirubin AST ALT Alkaline Phosphatase Total Creatine Kinase 53 L Total Protein Albumin Globulin Albumin/Globulin Ratio SARS-CoV-2 (PCR) Negative 01/09/22 01/09/22 01/09/22 05:10 05:10 05:10 WBC 4.4 L RBC 4.50 Hgb 12.4 L Hct 37.2 L MCV 82.7 MCH 27.6 MCHC 33.4 RDW 13.9 Plt Count 211 Neut % (Auto) 52.0 D Lymph % (Auto) 27.6 [place] % (Auto) 15.2 H Eos % (Auto) 4.3 H Baso % (Auto) 0.9 Neut # (Auto) 2300 Lymph # (Auto) 1200 [place] # (Auto) 700 Eos # (Auto) 200 Baso # (Auto) 0 PT INR APTT Sodium 137 Potassium 3.9 Chloride 103 Carbon Dioxide 28 BUN 12 Creatinine 0.49 L Estimated GFR > 60 BUN/Creatinine Ratio 24.5 H Glucose 102 H Lactate Calcium 8.3 L Phosphorus 3.8 Magnesium 2.1 Total Bilirubin 0.3 AST 21 ALT 14 Alkaline Phosphatase 60 Total Creatine Kinase 33 L Total Protein 6.4 Albumin 3.2 L Globulin 3.2 Albumin/Globulin Ratio 1.0 SARS-CoV-2 (PCR) CT scan shows soft tissue swelling and cellulitis around the right elbow there is a small fluid collection. Assessment & Plan Assessment and plan (1) Abscess of skin or subcutaneous tissue: Status: Acute (2) Cellulitis: Status: Acute (3) Septic olecranon bursitis: Status: Acute Plan I would concur with starting him on IV antibiotics. His previous cultures did grow was strep. Was I told him we should watch him clinically at least until tomorrow if he has persistent significant drainage or is not responding to IV antibiotics by consider room for an irrigation and debridement. Can have regular food today but we should keep him NPO past midnight so he can be re- examined tomorrow morning. Time Spent With Patient Critical Care time: I spent a total of [] minutes of critical care time on this patient's care today; this time is exclusive of procedural time. Quality VTE Deep Vein Thrombosis/Pulmonary Embolism Present on Admission: No
[2022-01-09] MEDS: cefTRIAXone 2,000 MG in SODIUM CHLORIDE 0.9% 100 ML 200 MG IV (08:19)
[2022-01-09] MEDS: ENOXAPARIN 40 MG/0.4 ML SYRINGE SUBCUT (08:19)
[2022-01-09] MEDS: NALOXONE SL (12:53)
[2022-01-09] MEDS: BUPRENORPHINE SL (12:53)
--- NOTE | 2022-01-09 14:49 | CM.DANOTE ---
DCP: Payor: [facility] PCP: Unknown Pt is a 56 y/o M admitted with infection in his right arm. Pt was previously seen in the ED and placed on oral antibiotics. His cultures were growing a strep pyogenes. Pt has some swelling in the right arm. No fevers or chills. Pt thinks it could be a bug bite and denies any recent IV drug abuse in the arm. Pt currently on IV antibiotics. Pt to continue to be watched overnight. Pt can have food today but needs to be NPO by midnight in case he needs an I&D tomorrow morning. MD to re-assess in the AM. DCP met with patient bedside and he was sitting up in the chair watching TV. Pt states he lives with his friends in [facility] and relies on them for transport or uses bus. Pt states it is a little painful in his R arm but nothing unbearable. Pt denies any needs at this time. Whiteboard updated and instructed to call DCP if any other questions arise. P: Pt to continue on IV abx and re-examine by physician tomorrow to determine if I&D needed. DCP to continue to follow. Kathy Novak RN/RINA Discharge Planning/Care Management CM Discharge Assessment Start: 01/09/22 14:47 Freq: Status: Active Protocol: Document 01/09/22 14:47 BRITTANY (Rec: 01/09/22 14:48 BRITTANY [id number]) Discharge Planning Assessment Assigned Marine Equipment Preservation Inspector Kathy Novak RN/RINA Advance Directives? Yes Advance Directives on File No History Provided By Patient Prior Living Arrangements House Comment Lives with friends Household Members friend(s) Type of transporation used prior to Relies on Others admit Independent with ADL's Yes Is patient alert and oriented? Yes Caregiver for Another No Transportation Arrangement POV via friend Referrals Initiated None needed Additional Comment At this time Whiteboard Updated in Patient Room with Yes name and ext. # of Marine Equipment Preservation Inspector Comment Instructed to call with any concerns or questions Review Status In Process Please Provide Date Initial DC 01/09/22 Assessment Was Performed Next Review Type Continued Stay Review
--- NOTE | 2022-01-09 15:01 | P.PN_ITS ---
Subjective Subjective Date Patient Seen: 01/09/22 Interval history: THIS IS A 56-YEAR-OLD MALE BEING TREATED FOR CELLULITIS ON THE RIGHT ELBOW. HAS A HISTORY OF ILLICIT DRUG USE. PRIOR AND CURRENT CULTURES NOTED WITH STREPTOCOCCUS PYOGENES TODAY PATIENT DENIES ANY FEVER NO CHILLS REPORTED NO SHORTNESS OF BREATH. NO CHEST PRESSURE. NO DYSPNEA ON EXERTION. WOULD LIKE TO KNOW WHEN HE CAN GO HOME. FEELS LIKE THE AREA/ SWELLING HAS IMPROVED. Exam Vital Signs (past 8 hours): - 01/09/22 08:00 01/09/22 10:06 01/09/22 12:00 Temperature 97.3 F L Pulse Rate 64 Respiratory Rate 17 Blood Pressure 116/70 Pulse Oximetry 96 99 94 01/09/22 13:05 Temperature 96.7 F L Pulse Rate 69 Respiratory Rate 17 Blood Pressure 133/95 H Pulse Oximetry 99 Oxygen Delivery Method Room Air Oxygen Flow Rate 0 Narrative Exam Narrative: NO ACUTE DISTRESS.? PATIENT IS ALERT ORIENTED X3. MOUTH :? POOR DENTITION.? MUCOUS MEMBRANES HEAD ATRAUMATIC NORMOCEPHALIC NECK : SUPPLE WITHOUT ADENOPATHY NO CAROTID BRUITS EYE:? EOMI, PERRLA, NORMAL CONJUNCTIVA; NO JAUNDICE CHEST:? REGULAR RATE.? ? NO RUBS.? PMI IS NON DISPLACED.? NO MURMURS; NORMAL S1- S2 PULMONARY:? DECREASED BS OVER THE BASES.? MILD BIBASILAR CRACKLES NOTED; NO INCREASED DULLNESS TO PERCUSSION ABDOMEN:? SOFT.? NONTENDER.? NONDISTENDED.? BOWEL SOUNDS ARE PRESENT IN ALL 4 QUADRANTS.? NO MASS. EXTREMITIES:? SWELLING NOTED TO THE RIGHT FOREARM.? MILDLY TENDER TO TOUCH UP TO THE ELBOW.? NO OPEN WOUNDS.? SENSATION IS INTACT TO THE DISTAL EXTREMITY. NEURO:? CRANIAL NERVES 2-12 GROSSLY INTACT. NO FOCAL NEUROLOGICAL DEFICIT NOTED. MSK:? NORMAL RANGE OF MOTION FOR AGE.? NO JOINT EFFUSION. SKIN:? REDNESS NOTED TO THE RIGHT FOREARM.? OPEN WOUNDS. :? NORMAL EXTERNAL GENITALIA. PSYCH :? APPROPRIATE MOOD AND AFFECT.? ALERT AWAKE ORIENTED X3 Objective Labs Result Diagrams: 01/09/22 05:10 01/09/22 05:10 Labs: Laboratory Results - last 24 hr 01/08/22 01/08/22 01/08/22 14:40 14:40 14:40 WBC 5.8 RBC 4.73 Hgb 13.0 L Hct 39.2 L MCV 82.9 MCH 27.4 MCHC 33.1 RDW 14.0 Plt Count 208 Neut % (Auto) 72.0 Lymph % (Auto) 13.1 L [place] % (Auto) 11.1 Eos % (Auto) 3.4 Baso % (Auto) 0.4 Neut # (Auto) 4200 Lymph # (Auto) 800 L [place] # (Auto) 600 Eos # (Auto) 200 Baso # (Auto) 0 PT INR APTT Sodium 138 Potassium 3.8 Chloride 101 Carbon Dioxide 31 BUN 17 Creatinine 0.53 L Estimated GFR > 60 BUN/Creatinine Ratio 32.1 H Glucose 114 H Lactate 0.9 Calcium 8.8 Phosphorus Magnesium Total Bilirubin 0.2 AST 25 ALT 16 Alkaline Phosphatase 68 Total Creatine Kinase Total Protein 6.8 Albumin 3.5 Globulin 3.3 Albumin/Globulin Ratio 1.1 SARS-CoV-2 (PCR) 01/08/22 01/08/22 01/08/22 14:40 14:40 17:40 WBC RBC Hgb Hct MCV MCH MCHC RDW Plt Count Neut % (Auto) Lymph % (Auto) [place] % (Auto) Eos % (Auto) Baso % (Auto) Neut # (Auto) Lymph # (Auto) [place] # (Auto) Eos # (Auto) Baso # (Auto) PT 12.3 INR 1.1 APTT 34 Sodium Potassium Chloride Carbon Dioxide BUN Creatinine Estimated GFR BUN/Creatinine Ratio Glucose Lactate Calcium Phosphorus Magnesium Total Bilirubin AST ALT Alkaline Phosphatase Total Creatine Kinase 53 L Total Protein Albumin Globulin Albumin/Globulin Ratio SARS-CoV-2 (PCR) Negative 01/09/22 01/09/22 01/09/22 05:10 05:10 05:10 WBC 4.4 L RBC 4.50 Hgb 12.4 L Hct 37.2 L MCV 82.7 MCH 27.6 MCHC 33.4 RDW 13.9 Plt Count 211 Neut % (Auto) 52.0 D Lymph % (Auto) 27.6 [place] % (Auto) 15.2 H Eos % (Auto) 4.3 H Baso % (Auto) 0.9 Neut # (Auto) 2300 Lymph # (Auto) 1200 [place] # (Auto) 700 Eos # (Auto) 200 Baso # (Auto) 0 PT INR APTT Sodium 137 Potassium 3.9 Chloride 103 Carbon Dioxide 28 BUN 12 Creatinine 0.49 L Estimated GFR > 60 BUN/Creatinine Ratio 24.5 H Glucose 102 H Lactate Calcium 8.3 L Phosphorus 3.8 Magnesium 2.1 Total Bilirubin 0.3 AST 21 ALT 14 Alkaline Phosphatase 60 Total Creatine Kinase 33 L Total Protein 6.4 Albumin 3.2 L Globulin 3.2 Albumin/Globulin Ratio 1.0 SARS-CoV-2 (PCR) [facility] Social History household members: friend(s) Smoking Status: Never smoker alcohol intake: former Assessment & Plan Assessment & Plan narrative: IMPRESSION STREPTOCOCCUS PYOGENES CELLULITIS OF THE RIGHT UPPER FOREARM. ON CLINDA AND ROCEPHIN POSSIBLE ILLICIT DRUG USE; COUNSELING GIVEN TOBACCO ABUSE PER HISTORY; COUNSELING GIVEN PLAN CULTURE TAKEN IN THE ER IS GROWING STREPTOCOCCUS PYOGENES WILL CONTINUE CURRENT ANTIBIOTICS FOR NOW NO PLAN FOR SURGICAL GIVEN AT THIS TIME SO FAR REPORTED BY SURGERY TEAM PATIENT REPORTED SOME IMPROVEMENT TO THE SWELLING BLOOD CULTURES REMAIN NEGATIVE. IF PATIENT CONTINUED TO SHOW IMPROVEMENT AND NO SURGICAL PROCEDURES PLANNED COULD POSSIBLY DISCHARGE IN NEXT 24-48 HOURS TO HOME ON ORAL ANTIBIOTICS CONTINUE TO FOLLOW LABS DAILY ENCOURAGE PATIENT TO STAY MOBILE POSSIBLE PATIENT TO BE OUT OF BED IN CHAIR WITH EACH MEAL ADDITIONAL MANAGEMENT PER CLINICAL COURSE 01/09 PATIENT TO BE EVALUATED BY ORTHOPEDIC SURGERY IN THE MORNING WILL CONSIDER REPEAT IMAGING OF THE RIGHT FOREARM IF INDICATED CLINICALLY PATIENT WILL BE STARTED ON CLINDAMYCIN AND ROCEPHIN FOR NOW WHICH SHOULD BE FAIRLY ADEQUATE WILL ASSESS IN THE MORNING AND CONSIDER VANCOMYCIN IF INDICATED CLINICALLY. COULD CONSIDER ADDING OTHER AGENTS WELL IF INDICATED REPEAT CPK LEVEL IN THE MORNING MONITOR CLOSELY FOR ANY SIGN OF COMPARTMENT SYNDROME THIS WOULD INDICATE A SURGICAL EMERGENCY DAILY LAB TO FOLLOW, CBC, CMP WILL BE ORDERED MONITOR CLOSELY FOR ANY SIGN OF DIARRHEA WHICH COULD INDICATE C DIFF COLITIS MOBILIZE PATIENT MUCH TOLERATED PAIN CONTROL WITH ORAL AND IV MEDICATIONS ADDITIONAL MANAGEMENT PER CLINICAL COURSE Time Spent With Patient Critical Care time: I spent a total of [] minutes of critical care time on this patient's care today; this time is exclusive of procedural time. Quality VTE Deep Vein Thrombosis/Pulmonary Embolism Present on Admission: No
[2022-01-09] MEDS: DEXAMETHASONE 10 MG/ML VIAL IV (16:49)
[2022-01-10] VITALS: O2SAT 98
[2022-01-10 00:12] VITALS: BP 129/85; PULSE 69; RESP 17; TEMP 36.4; O2SAT 98
[2022-01-10] MEDS: SODIUM CHLORIDE 0.9% 1,000 ML 100 ML IV (01:06)
[2022-01-10] MEDS: CLINDAMYCIN 900 MG/50 ML PIGGYBACK 50 MG IV ×2 (03:55→11:30)
[2022-01-10 04:00] VITALS: BP 107/69; PULSE 58; RESP 16; TEMP 37.2; O2SAT 98
[2022-01-10 06:41] LABS: Add Manual Diff / Slide Review NO; Basophils Absolute Auto 0 /uL (0-100); Basophils Percent Auto 0.4 % (0-2); Eosinophils Absolute Auto 0 /uL (0-450); Hematocrit 38.7 % (41-53); Hemoglobin 12.8 g/dL (13.5-17.5); Lymphocytes Absolute Auto 700 /uL (1100-4500); Lymphocytes Percent Auto 10.5 % (25-40); Mean Corpuscular HGB Conc 33.2 % (30-36); Mean Corpuscular Hemoglobin 27.2 PG (26-34); Monocytes Absolute Auto 500 /uL (0-900); Monocytes Percent Auto 7.5 % (3-14); Neutrophils Absolute Auto 5300 /uL (1500-7000); Neutrophils Percent Auto 81.6 % (50-75); Platelet Count 226 X10^3/uL (150-400); Red Blood Cell Count 4.72 X10^6/uL (4.5-5.9); Red Cell Distribution Width 13.8 % (11.6-14.8); White Blood Cell Count 6.5 X10^3/uL (4.5-11.0)
[2022-01-10 07:04] LABS: Creatine Kinase 38 U/L (55-170)
[2022-01-10 07:06] LABS: Alanine Aminotransferase 16 IU/L (<50); Albumin 3.4 g/dL (3.5-5.0); Albumin Globulin Ratio 1.1 (1.0-2.8); Alkaline Phosphatase 62 U/L (38-126); Aspartate Aminotransferase 21 IU/L (17-59); BUN Creatinine Ratio 32.6 (6-22); Bilirubin Total 0.3 mg/dL (0.2-1.3); Blood Urea Nitrogen 14 mg/dL (9-20); Calcium 8.6 mg/dL (8.4-10.2); Carbon Dioxide 25 mmol/L (22-32); Chloride 100 mmol/L (98-107); Estimated Glomerular Filt Rate > 60 mL/min (>60); Globulin 3.2 g/dL (1.7-4.1); Glucose 132 mg/dL (70-100); HEMOLYSIS < 15 (0-50); Magnesium 2.1 mg/dL (1.6-2.3); Phosphorous 3.5 mg/dL (2.5-4.5); Potassium 4.2 mmol/L (3.4-5.1); Sodium 134 mmol/L (137-145); Total Protein 6.6 g/dL (6.3-8.2)
[2022-01-10 08:06] VITALS: O2SAT 95
[2022-01-10] MEDS: ENOXAPARIN 40 MG/0.4 ML SYRINGE SUBCUT (08:16)
[2022-01-10] MEDS: cefTRIAXone 2,000 MG in SODIUM CHLORIDE 0.9% 100 ML 200 MG IV (08:17)
[2022-01-10] MEDS: DEXAMETHASONE 10 MG/ML VIAL IV (08:17)
[2022-01-10 08:20] VITALS: BP 132/86; PULSE 62; RESP 16; TEMP 36.6; O2SAT 100
[2022-01-10] MEDS: NALOXONE SL (08:21)
[2022-01-10] MEDS: BUPRENORPHINE SL (08:21)
[2022-01-10 12:00] VITALS: O2SAT 96
--- NOTE | 2022-01-10 12:13 | P.DS_ITS ---
History of Present Illness History of Present Illness Date Patient Seen: 01/10/22 Chief complaint: Infection in arm getting worse- told to come back Narrative: THIS IS A 56-YEAR-OLD MALE WITH A PAST MEDICAL HISTORY SIGNIFICANT FOR ILLICIT DRUG USE DENIES ANY HISTORY OF CAD, PRIOR STROKE, DIABETES, HYPERTENSION, KIDNEY DISEASE. HE PRESENTED TO THE HOSPITAL REPORTING SWELLING TO THE RIGHT FOREARM HE WAS TREATED WITH DOXYCYCLINE AND SENT HOME A COUPLE OF DAYS AGO. HE CAME BACK TODAY WITH WORSENING SWELLING. REDNESS APPRECIATED WELL. INCREASING PAIN TO THE RIGHT FOREARM. PATIENT DENIES ANY RECENT INJURIES. HE ALSO DENIES ANY INSECT/ANIMAL BITES. IN ANY CASE, IN THE ER HIS LABS ARE FAIRLY STABLE HOWEVER NOTICEABLE SWELLING NOTED TO THE RIGHT FOREARM WHICH PROMPTED A CT SCAN TO BE ORDERED. THE CT SCAN WAS NEGATIVE FOR ANY COLLECTION OF FLUID. ALSO NEGATIVE FOR ANY GUSMAN BCUTANEOUS EMPHYSEMA. HE WAS REFERRED TO ORTHOPEDIC SURGERY HOME WHOM WOULD SEE THE PATIENT ON CONSULT PAST MEDICAL HISTORY NONE PAST SURGICAL HISTORY REPORTED SOMETIMES HER [facility] SURGERY SOCIAL HISTORY TOBACCO ABUSE AND ALCOHOL ABUSE REPORTED. PATIENT ALSO REPORTED PRIOR HISTORY OF ILLICIT DRUG USE. FAMILY HISTORY DIABETES AND HYPERTENSION REPORTED. Discharge Providers Provider Date of admission: 01/08/22 17:44 Discharge Date: 01/10/22 Discharge provider: Rafi Cohen DO Summary Hospital Course Discharge Diagnosis: STREPTOCOCCUS PYOGENES CELLULITIS OF THE RIGHT UPPER FOREARM. ON CLINDA AND ROCEPHIN POSSIBLE ILLICIT DRUG USE; COUNSELING GIVEN TOBACCO ABUSE PER HISTORY; COUNSELING GIVEN Hospital Course: THIS IS A 56-YEAR-OLD MALE WITH A PAST MEDICAL HISTORY SIGNIFICANT FOR ILLICIT DRUG USE REPORTEDLY. PATIENT WAS ADMITTED WITH A CELLULITIS LESION ON THE RIGHT ELBOW OF UNCLEAR CAUSE. IS BEEN ANTIBIOTICS FOR LAST COUPLE DAYS AND APPEARED TO BE IMPROVING. THERE WAS SLIGHT OPENING ON THE RIGHT ELBOW AND CULTURES GROWING STR EPTOCOCCUS PYOGENES HIS LABS ARE FAIRLY STABLE. HE WAS SEEN BY THE SURGICAL TEAM AND NO SURGICAL INTERVENTION PLANNED AT THIS TIME. HE WILL BE DISCHARGED ON CLINDAMYCIN AND OMNICEF FOR 7 DAYS. FOLLOW-UP WITH PRIMARY CARE PHYSICIAN FOR ADDITIONAL MANAGEMENT. ACTIVITIES TOLERATED. AVOID SWIMMING IN STANDING WATER REGULAR DIET FOLLOW-UP WITH PCP AND SURGERY IN 1-2 WEEKS Status at Discharge Cognitive/behavioral status at discharge: oriented Functional status at discharge: independent ambulation Overall status at discharge: patient is progressing back to baseline Time Spent with Patient Time spent: Greater than 30 minutes Exam Vital Signs (past 8 hours): - 01/10/22 08:06 01/10/22 08:20 01/10/22 12:00 Temperature 97.9 F Pulse Rate 62 Respiratory Rate 16 Blood Pressure 132/86 Pulse Oximetry 95 100 96 Oxygen Delivery Method Room Air Oxygen Flow Rate 0 Narrative Exam Narrative: NO ACUTE DISTRESS.? PATIENT IS ALERT ORIENTED X3. MOUTH :? POOR DENTITION.? MUCOUS MEMBRANES HEAD ATRAUMATIC NORMOCEPHALIC NECK : SUPPLE WITHOUT ADENOPATHY NO CAROTID BRUITS EYE:? EOMI, PERRLA, NORMAL CONJUNCTIVA; NO JAUNDICE CHEST:? REGULAR RATE.? ? NO RUBS.? PMI IS NON DISPLACED.? NO MURMURS; NORMAL S1- S2 PULMONARY:? DECREASED BS OVER THE BASES.? MILD BIBASILAR CRACKLES NOTED; NO INCREASED DULLNESS TO PERCUSSION ABDOMEN:? SOFT.? NONTENDER.? NONDISTENDED.? BOWEL SOUNDS ARE PRESENT IN ALL 4 QUADRANTS.? NO MASS. EXTREMITIES:? SWELLING NOTED TO THE RIGHT FOREARM.? MILDLY TENDER TO TOUCH UP TO THE ELBOW.? NO OPEN WOUNDS.? SENSATION IS INTACT TO THE DISTAL EXTREMITY. NEURO:? CRANIAL NERVES 2-12 GROSSLY INTACT. NO FOCAL NEUROLOGICAL DEFICIT NOTED. MSK:? NORMAL RANGE OF MOTION FOR AGE.? NO JOINT EFFUSION. SKIN:? REDNESS NOTED TO THE RIGHT FOREARM.? OPEN WOUNDS. :? NORMAL EXTERNAL GENITALIA. PSYCH :? APPROPRIATE MOOD AND AFFECT.? ALERT AWAKE ORIENTED X3 Objective Labs Result Diagrams: 01/10/22 06:00 01/10/22 06:00 Labs: Laboratory Results - last 24 hr 01/10/22 01/10/22 01/10/22 06:00 06:00 06:00 WBC 6.5 RBC 4.72 Hgb 12.8 L Hct 38.7 L MCV 82.0 MCH 27.2 MCHC 33.2 RDW 13.8 Plt Count 226 Neut % (Auto) 81.6 H D Lymph % (Auto) 10.5 L [place] % (Auto) 7.5 Eos % (Auto) 0.0 L Baso % (Auto) 0.4 Neut # (Auto) 5300 Lymph # (Auto) 700 L [place] # (Auto) 500 Eos # (Auto) 0 Baso # (Auto) 0 Sodium 134 L Potassium 4.2 Chloride 100 Carbon Dioxide 25 BUN 14 Creatinine 0.43 L Estimated GFR > 60 BUN/Creatinine Ratio 32.6 H Glucose 132 H Calcium 8.6 Phosphorus 3.5 Magnesium 2.1 Total Bilirubin 0.3 AST 21 ALT 16 Alkaline Phosphatase 62 Total Creatine Kinase 38 L Total Protein 6.6 Albumin 3.4 L Globulin 3.2 Albumin/Globulin Ratio 1.1 [facility] Social History household members: friend(s) Smoking Status: Never smoker alcohol intake: former Discharge Plan Discharge Plan Patient Disposition: Home Discharge orders & Medications Prescriptions: New clindamycin HCl 300 mg capsule 300 mg PO Q8H 7 Days Qty: 21 0RF cefdinir 300 mg capsule 300 mg PO BID 5 Days Qty: 10 0RF Visbiome 112.5 billion cell capsule 1 cap PO BID Qty: 30 0RF prednisone 10 mg tablet 40 mg PO DAILY 4 Days Qty: 20 0RF Continued buprenorphine-naloxone 8-2 mg tablet, sublingual 2 tab SUBLINGUAL DAILY 0RF Label Comments: place 2 tablet by mouth under the tongue once daily Discontinued doxycycline hyclate 100 mg tablet 100 mg PO BID Qty: 20 0RF Diet/Activity/Treatments Diet: Regular Activity: TOLERATED; AVOID SWIMMING IN STANDING WATER Skin/Wound/Dressing Care Dressing: CHANGE BANDAGE TO THE RIGHT ELBOW DAILY. KEEP DRY AND CLEAN AT ALL TIMES Other wound treatment: OKAY TO SHOWER PRIOR TO CHANGING THE BANDAGE. Quality VTE Deep Vein Thrombosis/Pulmonary Embolism Present on Admission: No
--- NOTE | 2022-01-10 21:24 | P.PN_ITS ---
Subjective Subjective Date Patient Seen: 01/10/22 Time Patient Seen: 08:00 Interval history: He notes he is doing much better. His pain is decreased his motions improved. Exam Vital Signs (past 8 hours): Oxygen Delivery Method Room Air Oxygen Flow Rate 0 Narrative Exam Narrative: Is alert he is oriented he has essentially full range of motion in his right elbow, is erythema is substantially decreased, there is a small wound in the region of his olecranon bursa which is draining a small amount of fluid. There is minimal fluctuance in his olecranon bursa and there was reasonably good range of motion, compartments are soft he is neurologically intact distally and he has full motion in his elbow. Objective Labs Result Diagrams: 01/10/22 06:00 01/10/22 06:00 Labs: Laboratory Results - last 24 hr 01/10/22 01/10/22 01/10/22 06:00 06:00 06:00 WBC 6.5 RBC 4.72 Hgb 12.8 L Hct 38.7 L MCV 82.0 MCH 27.2 MCHC 33.2 RDW 13.8 Plt Count 226 Neut % (Auto) 81.6 H D Lymph % (Auto) 10.5 L [place] % (Auto) 7.5 Eos % (Auto) 0.0 L Baso % (Auto) 0.4 Neut # (Auto) 5300 Lymph # (Auto) 700 L [place] # (Auto) 500 Eos # (Auto) 0 Baso # (Auto) 0 Sodium 134 L Potassium 4.2 Chloride 100 Carbon Dioxide 25 BUN 14 Creatinine 0.43 L Estimated GFR > 60 BUN/Creatinine Ratio 32.6 H Glucose 132 H Calcium 8.6 Phosphorus 3.5 Magnesium 2.1 Total Bilirubin 0.3 AST 21 ALT 16 Alkaline Phosphatase 62 Total Creatine Kinase 38 L Total Protein 6.6 Albumin 3.4 L Globulin 3.2 Albumin/Globulin Ratio 1.1 [facility] Social History household members: friend(s) Smoking Status: Never smoker alcohol intake: former Assessment & Plan Assessment and plan (1) Septic olecranon bursitis: Status: Acute (2) Abscess of skin or subcutaneous tissue: Status: Acute (3) Cellulitis: Status: Acute Plan He is getting progressively better with conservative measures. I think it is okay for him to be discharged to home on oral antibiotics. He is going to do dressing changes will follow-up if he is having problems with continued wound healing. Time Spent With Patient Critical Care time: I spent a total of [] minutes of critical care time on this patient's care today; this time is exclusive of procedural time. Quality VTE Deep Vein Thrombosis/Pulmonary Embolism Present on Admission: No
== END 2022-01-10 13:40 | disposition home or self-care (01) | DRG 558 ==
LOC: ED 17:41 → AC 01-09 09:04
PROVIDERS: Admitting Provider Hospitalist; Emergency Provider Student in an Organized Health Care Education/Training Program; Referring Provider Student in an Organized Health Care Education/Training Program; Visit Provider Hospitalist
DX: M71.121 Other infective bursitis, right elbow (principal); L03.113 Cellulitis of right upper limb; L02.413 Cutaneous abscess of right upper limb; B95.4 Other streptococcus as the cause of diseases classified elsewhere; Z87.891 Personal history of nicotine dependence; Z20.822 Contact with and (suspected) exposure to COVID-19
CPT/HCPCS: 36415; 73201; 80053; 82550; 83605; 83735; 84100; 85025; 85610; 85730; 87040; 87070; 87075; 87077; 87147; 87205; 87635; 96365; 96367; 99283; 99284; C9803; G0378; J0696; J1100; J1650; J1885; J2405; Q9967

== ENCOUNTER 2022-02-16 15:52 | Emergency (ER) | payer MEDICARE, MEDICAID, SELFPAY ==
[2022-02-16] VITALS (8 sets, daily range): BP systolic 118–140; BP diastolic 75–85; PULSE 75–92; RESP 32; TEMP 36.6; O2SAT 95–100; BMI 19.5
--- NOTE | 2022-02-16 16:18 | DI.RAD.S_ITS ---
PROCEDURE: XR CHEST 2V INDICATIONS: short of breath TECHNIQUE: 2 views of the chest were acquired. COMPARISON: None. FINDINGS: Surgical changes and devices: None. Lungs and pleura: Lungs are clear. No pleural effusions or pneumothorax. Mediastinum: Mediastinal contours are normal. Heart size is normal. Bones and chest wall: No suspicious bony abnormalities. Degenerative changes of the left acromioclavicular joint. Soft tissues appear unremarkable. IMPRESSION: No acute cardiopulmonary abnormality. Dictated by: Garcia Gonzalez M.D. on 02/16/2022 at 16:13 Approved by: Garcia Gonzalez M.D. on 02/16/2022 at 16:15
[2022-02-16] MEDS: SODIUM CHLORIDE 0.9% 1,000 ML 1000 ML IV (16:49)
[2022-02-16 16:55] LABS: COVID19 -Nasal RAPID Negative (Negative)
[2022-02-16 16:58] LABS: Add Manual Diff / Slide Review NO; Basophils Absolute Auto 0 /uL (0-100); Basophils Percent Auto 0.5 % (0-2); Eosinophils Absolute Auto 100 /uL (0-450); Hematocrit 37.6 % (41-53); Hemoglobin 12.7 g/dL (13.5-17.5); Lymphocytes Absolute Auto 1100 /uL (1100-4500); Lymphocytes Percent Auto 17.3 % (25-40); Mean Corpuscular HGB Conc 33.9 % (30-36); Mean Corpuscular Hemoglobin 27.5 PG (26-34); Mean Corpuscular Volume 81.2 fL (80-100); Monocytes Absolute Auto 900 /uL (0-900); Monocytes Percent Auto 14.8 % (3-14); Neutrophils Absolute Auto 4100 /uL (1500-7000); Neutrophils Percent Auto 65.4 % (50-75); Platelet Count 232 X10^3/uL (150-400); Red Blood Cell Count 4.63 X10^6/uL (4.5-5.9); Red Cell Distribution Width 14.9 % (11.6-14.8); White Blood Cell Count 6.2 X10^3/uL (4.5-11.0)
[2022-02-16 17:03] LABS: Lactate (Lactic Acid) 1.2 mmol/L (0.7-2.1)
[2022-02-16 17:06] LABS: Alanine Aminotransferase 17 IU/L (<50); Albumin 4.3 g/dL (3.5-5.0); Albumin Globulin Ratio 1.1 (1.0-2.8); Alkaline Phosphatase 81 U/L (38-126); Aspartate Aminotransferase 30 IU/L (17-59); BUN Creatinine Ratio 27.1 (6-22); Bilirubin Total 0.5 mg/dL (0.2-1.3); Blood Urea Nitrogen 16 mg/dL (9-20); Calcium 9.2 mg/dL (8.4-10.2); Carbon Dioxide 29 mmol/L (22-32); Chloride 99 mmol/L (98-107); Estimated Glomerular Filt Rate > 60 mL/min (>60); Globulin 3.8 g/dL (1.7-4.1); Glucose 104 mg/dL (70-100); HEMOLYSIS < 15 (0-50); Lipase 20 U/L (23-300); Potassium 3.7 mmol/L (3.4-5.1); Sodium 138 mmol/L (137-145); Total Protein 8.1 g/dL (6.3-8.2)
[2022-02-16 17:21] LABS: Procalcitonin 0.13 ng/mL (<0.5)
--- NOTE | 2022-02-16 18:14 | ED.GENADULT ---
HPI - General Adult General Chief complaint: Shortness of Breath/Dyspnea Stated complaint: Possible pnemonia Time Seen by Provider: 02/16/22 16:46 Source: patient Mode of arrival: Ambulatory History of Present Illness HPI narrative: 56-year-old gentleman with a history of polysubstance use currently on Suboxone and doing well. Long history of smoking with no tobacco abuse for a number of years continues to smoke THC regularly. Prior diagnoses with emphysema, asthma and seasonal allergies. In the past he has used steroids as well as inhaled steroids he prefers to not see doctors and has not had any refills of these recently. Over the last at least week he has been having an increased cough. He reports a fever to 102 when seen at [facility]. He describes hacking cough slightly productive. Increase headache recently related to cough and he also notes significant increased stresses related to living in social situations. He does not describe overt chest pain, palpitations, abdominal pain, vomiting, diarrhea, lower extremity edema. Related Data Home Medications Medication Instructions Recorded Confirmed buprenorphine 8 mg-naloxone 2 mg 2 tab sublingual DAILY 01/09/22 01/09/22 sublingual tablet Previous Rx's Medication Instructions Recorded Lactobac no.2-Bifidobac no.1-S. 1 cap PO BID #30 caps 01/10/22 thermo 112.5 billion cell capsule (Visbiome) albuterol sulfate 90 mcg/actuation 2 puff inhalation Q6H PRN 02/16/22 aerosol inhaler shortness of breath or wheezing #8.5 grams prednisone 20 mg tablet 20 mg PO DAILY #5 tabs 02/16/22 Allergies Allergy/AdvReac Type Severity Reaction Status Date / Time ketorolac Allergy Verified 02/16/22 16:13 Review of Systems Review of Systems Narrative: Remainder of complete review of systems is otherwise unremarkable except for that included in the HPI. Patient History Medical History (Updated 02/16/22 @ 19:10 by Carine Huff MD) Chronic emphysema syndrome Opioid use disorder, severe, in sustained remission Social History household members: friend(s) Smoking Status: Never smoker alcohol intake: former Smoking Status: Never smoker Substance Use Type: former substance user and marijuana Exam Initial Vital Signs Initial Vital Signs: Vital Signs Temperature 97.9 F 02/16/22 16:14 Pulse Rate 92 H 02/16/22 16:14 Respiratory Rate 32 H 02/16/22 16:14 Blood Pressure 118/75 02/16/22 16:14 Pulse Oximetry 99 02/16/22 16:14 Oxygen Delivery Method 02/16/22 16:14 General: Chronically ill-appearing, in no acute distress. Able to give a complete and coherent history. HEENT: Moist mucous membranes, normal sclera with reactive pupils, Neck: No JVD, supple Respiratory: Lungs are clear to auscultation, no wheezing no rales no rhonchi. Full and symmetrical air movement Cardiac: Regular rate and rhythm no murmurs no bruits Abdomen: Soft, nontender, good bowel tones, no flank pain Skin: Warm and dry, no rashes Neurologic: Grossly neurologically intact with no obvious asymmetries or abnormalities Extremities: No trauma, well perfused, mild clubbing of fingernails Psych: Frustrated, poor overall inside Course Orders Ordered: ED Orders 02/16/22 16:17 EKG-12 Lead Stat 02/16/22 16:18 XR chest 2V Stat 02/16/22 16:20 COVID19 -Nasal RAPID/Pre-Proc Stat 02/16/22 16:40 Complete Blood Count AUTO DIFF Stat Comprehensive Metabolic Panel Stat Lactate (Lactic Acid) Stat Lipase Stat Procalcitonin Stat 02/16/22 17:05 Blood Culture Stat Discontinued Medications Sodium Chloride (Normal Saline 0.9%) 1,000 mls @ 1,000 mls/hr IV BOLUS ONE Stop: 02/16/22 17:16 Last Admin: 02/16/22 16:49 Dose: 1,000 mls/hr Documented By: DORON Vital Signs Vital signs: Vital Signs - 8 hr 02/16/22 16:14 02/16/22 17:29 02/16/22 17:29 Temperature 97.9 F Pulse Rate 92 H 81 Respiratory Rate 32 H Blood Pressure 118/75 126/78 Pulse Oximetry 99 95 Oxygen Delivery Method Room Air 02/16/22 17:30 02/16/22 18:00 02/16/22 18:30 Temperature Pulse Rate 75 75 77 Respiratory Rate Blood Pressure Pulse Oximetry 100 100 100 Oxygen Delivery Method 02/16/22 18:34 02/16/22 18:34 Temperature Pulse Rate 83 Respiratory Rate Blood Pressure 140/85 Pulse Oximetry 100 Oxygen Delivery Method Medical Decision Making Lab Data Result diagrams: 02/16/22 16:40 02/16/22 16:40 Labs: Lab Results 02/16/22 02/16/22 02/16/22 Range/Units 16:20 16:40 16:40 WBC 6.2 (4.5-11.0) X10^3/uL RBC 4.63 (4.5-5.9) X10^6/uL Hgb 12.7 L (13.5-17.5) g/dL Hct 37.6 L (41-53) % MCV 81.2 (80-100) fL MCH 27.5 (26-34) PG MCHC 33.9 (30-36) % RDW 14.9 H (11.6-14.8) % Plt Count 232 (150-400) X10^3/uL Neut % (Auto) 65.4 (50-75) % Lymph % (Auto) 17.3 L (25-40) % [place] % (Auto) 14.8 H (3-14) % Eos % (Auto) 2.0 (2-4) % Baso % (Auto) 0.5 (0-2) % Neut # (Auto) 4100 (5288-4264) /uL Lymph # (Auto) 1100 (3766-5441) /uL [place] # (Auto) 900 (0-900) /uL Eos # (Auto) 100 (0-450) /uL Baso # (Auto) 0 (0-100) /uL Sodium 138 (137-145) mmol/L Potassium 3.7 (3.4-5.1) mmol/L Chloride 99 (98-107) mmol/L Carbon Dioxide 29 (22-32) mmol/L BUN 16 (9-20) mg/dL Creatinine 0.59 L (0.66-1.25) mg/dL Estimated GFR > 60 (>60) mL/min BUN/Creatinine Ratio 27.1 H (6-22) Glucose 104 H (70-100) mg/dL Lactate (0.7-2.1) mmol/L Calcium 9.2 (8.4-10.2) mg/dL Total Bilirubin 0.5 (0.2-1.3) mg/dL AST 30 (17-59) IU/L ALT 17 (<50) IU/L Alkaline Phosphatase 81 (38-126) U/L Total Protein 8.1 (6.3-8.2) g/dL Albumin 4.3 (3.5-5.0) g/dL Globulin 3.8 (1.7-4.1) g/dL Albumin/Globulin Ratio 1.1 (1.0-2.8) Lipase 20 L (23-300) U/L Procalcitonin 0.13 (<0.5) ng/mL SARS-CoV-2 (PCR) Negative (Negative) 02/16/22 Range/Units 16:40 WBC (4.5-11.0) X10^3/uL RBC (4.5-5.9) X10^6/uL Hgb (13.5-17.5) g/dL Hct (41-53) % MCV (80-100) fL MCH (26-34) PG MCHC (30-36) % RDW (11.6-14.8) % Plt Count (150-400) X10^3/uL Neut % (Auto) (50-75) % Lymph % (Auto) (25-40) % [place] % (Auto) (3-14) % Eos % (Auto) (2-4) % Baso % (Auto) (0-2) % Neut # (Auto) (5031-3958) /uL Lymph # (Auto) (8898-3834) /uL [place] # (Auto) (0-900) /uL Eos # (Auto) (0-450) /uL Baso # (Auto) (0-100) /uL Sodium (137-145) mmol/L Potassium (3.4-5.1) mmol/L Chloride (98-107) mmol/L Carbon Dioxide (22-32) mmol/L BUN (9-20) mg/dL Creatinine (0.66-1.25) mg/dL Estimated GFR (>60) mL/min BUN/Creatinine Ratio (6-22) Glucose (70-100) mg/dL Lactate 1.2 (0.7-2.1) mmol/L Calcium (8.4-10.2) mg/dL Total Bilirubin (0.2-1.3) mg/dL AST (17-59) IU/L ALT (<50) IU/L Alkaline Phosphatase (38-126) U/L Total Protein (6.3-8.2) g/dL Albumin (3.5-5.0) g/dL Globulin (1.7-4.1) g/dL Albumin/Globulin Ratio (1.0-2.8) Lipase (23-300) U/L Procalcitonin (<0.5) ng/mL SARS-CoV-2 (PCR) (Negative) Imaging Data Chest x-ray: Radiologist's Impression: FINDINGS:? ? Surgical changes and devices:? None.? ? Lungs and pleura:? Lungs are clear.? No pleural effusions or pneumothorax.? ? Mediastinum:? Mediastinal contours are normal.? Heart size is normal.? ? Bones and chest wall:? No suspicious bony abnormalities.? Degenerative changes of the left acromioclavicular joint.? Soft tissues appear unremarkable.? ? IMPRESSION:? No acute cardiopulmonary abnormality. ? ? ? Dictated by: Garcia Gonzalez M.D. on 02/16/2022 at 16:13? ?? ECG Data Interpretation: Sinus rhythm at a rate of 69 Left ventricular hypertrophy Normal intervals, normal axis No acute ischemic changes MDM Narrative Medical decision making narrative: 56-year-old gentleman with a history of COPD CAD/emphysema/asthma with increasing cough recently. Reports a fever last week none this week. Labs today are reassuring with no evidence of bacterial super infection, sepsis. Covid test is negative. Chest x-ray is interpreted by Radiology is unremarkable. He has no dramatic wheezing retractions on physical exam. He continues to complain of his cough and his headache. He does feel better after L of fluid. Suspect that this is COPD exacerbation at the end viral illness. He clearly is improving, not hypoxic, not using accessory muscles able speak in full sentences and will be safe for home discharge. Will place him on 5 additional days of steroids he is given 60 mg of IV Medrol in the emergency department. He is given spacer training and an albuterol MDI. He states that he has use these before and would appreciate having and additional prescription. He further states that he likely will choose to not follow-up with any providers after this is he does not like going to physicians. Discharge Plan Departure Patient Disposition: Home Clinical Impression: Upper respiratory infection, viral, Acute exacerbation of chronic obstructive pulmonary disease Instructions: DI for Chronic Obstructive Pulmonary Disease Activity Restrictions/Additional Instructions: Thank you for coming in today I suspect that you have had a viral upper respiratory infection to cause the fevers and cough. Your COVID test today is negative. Your chest x-ray does not show any acute changes. Your given fluids and steroids in the emergency department I have sent you home with a spacer and an albuterol inhaler. Please use 2 puffs every 4 hours as needed for cough. I am also going to suggest 5 additional days of prednisone, I have given you a prescription for 20 mg daily. Prescriptions for inhalers and prednisone have been electronically transmitted to [email or web address] in [place] If you find that you are having increasing difficulty breathing, increasing fevers, palpitations or other concerning findings please return to the ER. Prescriptions: New prednisone 20 mg tablet 20 mg PO DAILY Qty: 5 0RF albuterol sulfate 90 mcg/actuation HFA aerosol inhaler 2 puff inhalation Q6H PRN (Reason: shortness of breath or wheezing) Qty: 8.5 2RF No Action buprenorphine-naloxone 8-2 mg tablet, sublingual 2 tab SUBLINGUAL DAILY Label Comments: place 2 tablet by mouth under the tongue once daily Visbiome 112.5 billion cell capsule 1 cap PO BID Qty: 30 0RF
[2022-02-16] MEDS: methylPREDNISolone 125 MG/2 ML VIAL 60 MG IV (19:07)
[2022-02-16] MEDS: ALBUTEROL HFA PREPACK 1 BOX MISC (19:12)
== END 2022-02-16 19:21 | disposition home or self-care (01) ==
PROVIDERS: Emergency Medicine; Emergency Provider Emergency Medicine
DX: J06.9 Acute upper respiratory infection, unspecified (principal); J44.1 Chronic obstructive pulmonary disease with (acute) exacerbation; Z20.822 Contact with and (suspected) exposure to COVID-19
CPT/HCPCS: 36415; 71046; 80053; 83605; 83690; 84145; 85025; 87040; 87635; 93005; 93010; 96361; 96374; 99284; C9803; J2930

== ENCOUNTER 2022-12-11 18:44 | Emergency (ER) | payer MEDICARE, MEDICAID, SELFPAY ==
[2022-12-11 19:03] VITALS: BP 188/86; PULSE 108; RESP 22; TEMP 36.3; O2SAT 96
--- NOTE | 2022-12-11 19:11 | DI.RAD.S_ITS ---
PROCEDURE: XR CHEST 2V INDICATIONS: cough TECHNIQUE: 2 views of the chest were acquired. COMPARISON: [facility], CR, XR CHEST 2V, 02/16/2022, 16:27. FINDINGS: Surgical changes and devices: None. Lungs and pleura: Mild hyperaeration as before. Streaky bibasilar opacities and blunting of the bilateral costophrenic angles may represent very small bilateral pleural effusions. More pronounced patchy right lower lobe opacities. Mediastinum: Mediastinal contours are normal. Heart size is normal. Bones and chest wall: No suspicious bony abnormalities. Soft tissues appear unremarkable. IMPRESSION: Streaky bibasilar opacities likely representing atelectasis. More focal patchy right lower lobe opacity may represent early developing airspace disease/pneumonia. Recommend follow up chest radiograph 4-6 weeks after treatment to document resolution of findings and/or return to baseline examination. Dictated by: Romario Rodriguez M.D. on 12/11/2022 at 20:17 Approved by: Romario Rodriguez M.D. on 12/11/2022 at 20:19
[2022-12-11 20:05] LABS: Influenza A - CEPHEID Flu A NEGATIVE (NEGATIVE); Influenza B - CEPHEID Flu B NEGATIVE (NEGATIVE); Respiratory Syncytial Virus Negative (Negative)
[2022-12-11 20:06] LABS: COVID-19 CEPHEID 4-PLEX PCR Negative (Negative)
[2022-12-11 22:02] VITALS: BP 130/80; PULSE 86; O2SAT 97
[2022-12-11 22:30] VITALS: PULSE 73; O2SAT 97
[2022-12-11 23:05] VITALS: PULSE 87; O2SAT 96
[2022-12-11 23:06] VITALS: BP 124/83; PULSE 86; O2SAT 96
--- NOTE | 2022-12-11 23:15 | ED_ITS ---
HPI - URI/Sore Throat General Chief Complaint: Upper Respiratory Symptoms Stated Complaint: SINUS PROBLEMS/HAS CHRONIC BRONCHITIS Time Seen by Provider: 12/11/22 23:14 Source: patient Mode of arrival: Family Vehicle History of Present Illness HPI Narrative: Patient is a healthy 56-year-old male former history of polysubstance abuse for many years presents today with sinus congestion cough shortness breath ongoing for about the last 10 days. He actually says he is feeling little bit better. But still coughing up stuff generally not feeling well. He has a mild sore throat. He is currently afebrile here in the emergency department. He denies abdominal pain nausea vomiting lower extremity edema. Increasing shortness of breath exertion. No actual chest pain. Related Data Home Medications Medication Instructions Recorded Confirmed buprenorphine 8 mg-naloxone 2 mg 2 tab sublingual DAILY 01/09/22 01/09/22 sublingual tablet Previous Rx's Medication Instructions Recorded Lactobac no.2-Bifidobac no.1-S. 1 cap PO BID #30 caps 01/10/22 thermo 112.5 billion cell capsule (Visbiome) albuterol sulfate 90 mcg/actuation 2 puff inhalation Q6H PRN 02/16/22 aerosol inhaler shortness of breath or wheezing #8.5 grams prednisone 20 mg tablet 20 mg PO DAILY #5 tabs 02/16/22 albuterol sulfate 90 mcg/actuation 2 puff inhalation Q4-6H PRN 12/11/22 aerosol inhaler shortness of breath or wheezing #8.5 grams amoxicillin 500 mg capsule 1,000 mg PO TID 5 days #30 caps 12/11/22 azithromycin 250 mg tablet See Rx Instructions PO .COMPLEX #6 12/11/22 tabs Allergies Allergy/AdvReac Type Severity Reaction Status Date / Time ketorolac Allergy Verified 12/11/22 19:10 Review of Systems Review of Systems ROS Unobtainable: All systems reviewed & are unremarkable except as noted in HPI and below Patient History Medical History Chronic emphysema syndrome Opioid use disorder, severe, in sustained remission Social History household members: friend(s) Smoking Status: Former smoker alcohol intake: former Smoking Status: Former smoker tobacco type: cigarettes alcohol intake frequency: 0-2 drinks per day Substance Use Type: former substance user and marijuana Exam Initial Vital Signs Initial Vital Signs: Vital Signs Temperature 97.4 F L 12/11/22 19:03 Pulse Rate 108 H 12/11/22 19:03 Respiratory Rate 22 12/11/22 19:03 Blood Pressure 188/86 H 12/11/22 19:03 Pulse Oximetry 96 12/11/22 19:03 Oxygen Delivery Method Room Air 12/11/22 19:03 GENERAL: Alert well-appearing 56-year-old male and in no acute distress. HEENT: Head atraumatic,EOMI, pupils reactive, face symmetric, moist mucous membranes CARDIOVASCULAR: Regular rate and rhythm without murmurs, rubs or gallops. RESPIRATORY: Breath sounds equal bilaterally, no wheezes rales or rhonchi. ABDOMEN: Soft, nontender. Normoactive bowel sounds all 4 quadrants. No guarding or rebound. EXTREMITIES: Normal range of motion, no clubbing or edema. Neurovascularly intact NEUROLOGICAL: Alert and oriented x4. SKIN: Warm, dry, no laceration, no petechiae, no rashes or lesions. Course Orders Ordered: ED Orders 12/11/22 19:08 Covid-19 + FLU A/B + RSV - PCR Stat 12/11/22 19:11 XR chest 2V Stat Discontinued Medications Albuterol (Albuterol Hfa Prepack) [address] [facility] SEEINSTR ONE Stop: 12/11/22 23:22 Last Admin: 12/11/22 23:38 Dose: 1 box Documented By: REINA Albuterol/Ipratropium (Albuterol/Ipratropium 3 Ml Ampul) 3 ml INH NOW ONE Stop: 12/11/22 23:22 Last Admin: 12/11/22 23:38 Dose: 3 ml Documented By: REINA Amoxicillin (Amoxicillin 250 Mg/5 Ml Prepack) [address] [facility] SEEINSTR ONE Stop: 12/11/22 23:21 Amoxicillin (Amoxicillin 250 Mg Capsule) 1,000 mg PO NOW ONE Stop: 12/11/22 23:22 Last Admin: 12/11/22 23:37 Dose: 1,000 mg Documented By: REINA Azithromycin (Azithromycin 250 Mg Tablet) 500 mg PO NOW ONE Stop: 12/11/22 23:22 Last Admin: 12/11/22 23:38 Dose: 500 mg Documented By: REINA Vital Signs Vital signs: Vital Signs - 8 hr 12/11/22 19:03 12/11/22 22:02 12/11/22 22:02 Temperature 97.4 F L Pulse Rate 108 H 86 Respiratory Rate 22 Blood Pressure 188/86 H 130/80 Pulse Oximetry 96 97 Oxygen Delivery Method Room Air 12/11/22 22:30 12/11/22 23:05 12/11/22 23:06 Temperature Pulse Rate 73 87 Respiratory Rate Blood Pressure 124/83 Pulse Oximetry 97 96 Oxygen Delivery Method Room Air 12/11/22 23:06 12/11/22 23:30 12/11/22 23:30 Temperature Pulse Rate 86 71 Respiratory Rate Blood Pressure 128/74 Pulse Oximetry 96 97 Oxygen Delivery Method 12/12/22 00:00 12/12/22 00:00 Temperature Pulse Rate 89 Respiratory Rate Blood Pressure 125/73 Pulse Oximetry 98 Oxygen Delivery Method MDM - URI/Sore Throat Lab Data Labs: Lab Results 12/11/22 Range/Units 19:08 SARS-CoV-2 (PCR) Negative (Negative) Influenza A (RT-PCR) Flu a negative (NEGATIVE) Influenza B (RT-PCR) Flu b negative (NEGATIVE) RSV (PCR) Negative (Negative) Imaging Data Chest x-ray: Radiologist's Impression: PROCEDURE:? XR CHEST 2V ? INDICATIONS:? cough ? TECHNIQUE:? 2 views of the chest were acquired.? ? COMPARISON:? [facility], , XR CHEST 2V, 02/16/2022, 16:27. ? FINDINGS:? ? Surgical changes and devices:? None.? ? Lungs and pleura:? Mild hyperaeration as before.? Streaky bibasilar opacities and blunting of the bilateral costophrenic angles may represent very small bilateral pleural effusions.? More pronounced patchy right lower lobe opacities. ? Mediastinum:? Mediastinal contours are normal.? Heart size is normal.? ? Bones and chest wall:? No suspicious bony abnormalities.? Soft tissues appear unremarkable.? ? IMPRESSION:? Streaky bibasilar opacities likely representing atelectasis.? More focal patchy right lower lobe opacity may represent early developing airspace disease/pneumonia. ? Recommend follow up chest radiograph 4-6 weeks after treatment to document resolution of findings and/or return to baseline examination. ? ? ? Dictated by: Romario Rodriguez M.D. on 12/11/2022 at 20:17 ? ? [facility] Narrative Medical decision making narrative: Patient is a 56-year-old male who presents with upper respiratory like symptoms ongoing for the last 10 days. Overall feeling better today but to get checked out. Still having cough not feeling great. Initial vitals showed elevated blood pressure and tachycardia which improved in the emergency department without any intervention. He is not hypoxic tachycardic or febrile. Chest x- ray does show possible pneumonia. Respiratory panel is negative. He feels like he is short of breath at times with exertion his perform a history of smoking. Discharge Plan Departure Patient Disposition: Home Clinical Impression: Pneumonia Instructions: DI for Pneumonia -- Adult Activity Restrictions/Additional Instructions: *You have been diagnosed with pneumonia *What to do: At this time x-ray does have a mild case pneumonia. *Continue to take medications as directed--> SENT TO [facility] [place] Augmentin 1000 mg 3 times a day for 5 days Azithromycin take as directed for 5 days Albuterol 1-2 puffs if needed for shortness of breath *Follow up with your primary care provider in 2-3 days or call [phone] *Return to ER if you should have increasing shortness of breath fever chills chest or any new, worsening or concerning symptoms Prescriptions: New amoxicillin 500 mg capsule 1,000 mg PO TID 5 Days Qty: 30 0RF azithromycin 250 mg tablet See Rx Instructions .ROUTE .COMPLEX Qty: 6 0RF Rx Instructions: For 250 mg dose pack: take 500 mg today (day 1), then 250 mg for 4 days (days 2-5) albuterol sulfate 90 mcg/actuation HFA aerosol inhaler 2 puff INHALATION Q4-6H PRN (Reason: shortness of breath or wheezing) Qty: 8.5 0RF No Action buprenorphine-naloxone 8-2 mg tablet, sublingual 2 tab SUBLINGUAL DAILY Patient Comments: place 2 tablet by mouth under the tongue once daily Visbiome 112.5 billion cell capsule 1 cap PO BID Qty: 30 0RF prednisone 20 mg tablet 20 mg PO DAILY Qty: 5 0RF albuterol sulfate 90 mcg/actuation HFA aerosol inhaler 2 puff inhalation Q6H PRN (Reason: shortness of breath or wheezing) Qty: 8.5 2RF Stand Alone Forms: Patient Portal/API
[2022-12-11 23:30] VITALS: BP 128/74; PULSE 71; O2SAT 97
[2022-12-11] MEDS: AMOXICILLIN 250 MG CAPSULE 1000 MG PO (23:37)
[2022-12-11] MEDS: AZITHROMYCIN 250 MG TABLET 500 MG PO (23:38)
[2022-12-11] MEDS: ALBUTEROL/IPRATROPIUM 3 ML AMPUL INH (23:38)
[2022-12-11] MEDS: ALBUTEROL HFA PREPACK 1 BOX MISC (23:38)
[2022-12-12] VITALS: BP 125/73; PULSE 89; O2SAT 98
== END 2022-12-12 00:50 | disposition home or self-care (01) ==
PROVIDERS: Emergency Medicine; Emergency Provider Emergency Medicine
DX: J18.9 Pneumonia, unspecified organism (principal); Z20.822 Contact with and (suspected) exposure to COVID-19
CPT/HCPCS: 0241U; 71046; 99283; 99284

== ENCOUNTER 2023-11-11 02:21 | Observation (INO) | payer MEDICARE, MEDICAID, SELFPAY ==
[2023-11-11 02:23] VITALS: BP 143/90; PULSE 78; RESP 20; TEMP 36.6; O2SAT 100; BMI 23.0
--- NOTE | 2023-11-11 02:33 | DI.RAD.S_ITS ---
PROCEDURE: XR HAND RT MIN 3V INDICATIONS: puncture wound R hand dorsum base of ring finger TECHNIQUE: 3 views of the hand(s) acquired. COMPARISON: None. FINDINGS: Bones: No fracture or dislocation Soft tissues: No radiopaque foreign body. Soft tissue swelling is present. IMPRESSION: No acute osseous abnormality. No radiopaque foreign body. If there is high concern for occult injury, consider repeat radiography or cross-sectional imaging. Agree with prelim report. Dictated by: Howard Lanza M.D. on 11/11/2023 at 7:32 Approved by: Howard Lanza M.D. on 11/11/2023 at 7:33
--- NOTE | 2023-11-11 02:35 | ED_ITS ---
HPI - General Adult General Chief complaint: Wound/Laceration Stated complaint: rt hand injury Time Seen by Provider: 11/11/23 02:29 Source: patient Mode of arrival: Ambulatory Limitations: no limitations History of Present Illness HPI narrative: Patient is a 57-year-old male. Right-hand dominant. No diagnosed medical problems. Here for evaluation of a cut to the back of his right hand that has now developed into swelling and redness and drainage. He states that he cut his hand approximately 24 hours ago. Initially he stated that he cut it on some glass but then stated that it may have been a tin can. He did take some pain medication given to him by a friend prior to arrival. Denies fevers. States that he thinks that he injured the tendon in his hand as he was not able to extend is ring finger. He did wash it out after the event but nothing since then. He states he does need an update of his tetanus. Related Data Home Medications Medication Instructions Recorded Confirmed buprenorphine 8 mg-naloxone 2 mg 2 tab sublingual DAILY 01/09/22 01/09/22 sublingual tablet Previous Rx's Medication Instructions Recorded Lactobac no.2-Bifidobac no.1-S. 1 cap PO BID #30 caps 01/10/22 thermo 112.5 billion cell capsule (Visbiome) albuterol sulfate 90 mcg/actuation 2 puff inhalation Q6H PRN 02/16/22 aerosol inhaler shortness of breath or wheezing #8.5 grams prednisone 20 mg tablet 20 mg PO DAILY #5 tabs 02/16/22 albuterol sulfate 90 mcg/actuation 2 puff inhalation Q4-6H PRN 12/11/22 aerosol inhaler shortness of breath or wheezing #8.5 grams azithromycin 250 mg tablet See Rx Instructions PO .COMPLEX #6 12/11/22 tabs Allergies Allergy/AdvReac Type Severity Reaction Status Date / Time ketorolac Allergy Verified 11/11/23 02:48 gabapentin AdvReac Unconscious Verified 11/11/23 02:48 Review of Systems Constitutional Constitutional: Reports system reviewed and no additional complaints, except as documented Musculoskeletal Musculoskeletal: Reports system reviewed and no additional complaints, except as documented Integumentary/Breasts Skin/Breast: Reports system reviewed and no additional complaints, except as documented Neurologic Neurologic: Reports system reviewed and no additional complaints, except as documented Patient History Medical History Chronic emphysema syndrome Opioid use disorder, severe, in sustained remission Social History household members: friend(s) Smoking Status: Former smoker alcohol intake: former Smoking Status: Former smoker tobacco type: cigarettes alcohol intake frequency: 0-2 drinks per day Substance Use Type: former substance user and marijuana Exam Initial Vital Signs Initial Vital Signs: Vital Signs Temperature 98 F 11/11/23 02:23 Pulse Rate 78 11/11/23 02:23 Respiratory Rate 20 11/11/23 02:23 Blood Pressure 143/90 H 11/11/23 02:23 Pulse Oximetry 100 11/11/23 02:23 Oxygen Delivery Method Room Air 11/11/23 02:23 Skin Other: 2 cm laceration on the dorsum of the right hand at the base of the ring finger just proximal to the MCP joint. There is drainage from this area. There is redness and swelling around the dorsum of the right hand. Neuro Sensory Exam: no sensory deficits noted Extrem Other: Patient is unable to extend his ring finger the MCP joint. He was unable to hold it in position when it is extended passively. Has no issues with flexion- extension of the right middle and little finger. Course Orders Ordered: ED Orders 11/11/23 02:33 XR hand RT min 3V Stat 11/11/23 02:35 Basic Metabolic Panel Stat Complete Blood Count AUTO DIFF Stat 11/11/23 03:33 Wound Culture and Gram Stain Stat 11/11/23 03:39 Consult to Orthopedic Surgery Stat Discontinued Medications Diphtheria/Tetanus/Acell Pertussis (Tet,Diph,Pertuss(Acell),Vac/Pf 0.5 Ml Syringe) 0.5 ml IM .ONCE ONE Stop: 11/11/23 02:31 Last Admin: 11/11/23 02:36 Dose: 0.5 ml Documented By: CAILIN Vancomycin HCl (Vancomycin) 1,000 mg in 200 mls @ 200 mls/hr IV NOW ONE Stop: 11/11/23 03:36 Last Admin: 11/11/23 03:17 Dose: 200 mls/hr Documented By: SB Ceftriaxone Sodium 1,000 mg/ (Sodium Chloride) 100 mls @ 200 mls/hr IV NOW ONE Stop: 11/11/23 02:38 Last Infusion: 11/11/23 03:18 Dose: Infused Documented By: Admin: 11/11/23 02:42 Dose: 200 mls/hr Documented By: CAILIN Vital Signs Vital signs: Vital Signs - 8 hr 11/11/23 02:23 Temperature 98 F Pulse Rate 78 Respiratory Rate 20 Blood Pressure 143/90 H Pulse Oximetry 100 Oxygen Delivery Method Room Air Medical Decision Making Lab Data Lab results reviewed: Yes I reviewed the patient's lab results. 11/11/23 02:35 11/11/23 02:35 Labs: Lab Results 11/11/23 Range/Units 02:35 WBC 5.9 (4.5-11.0) X10^3/uL RBC 4.86 (4.5-5.9) X10^6/uL Hgb 13.2 L (13.5-17.5) g/dL Hct 40.2 L (41-53) % MCV 82.6 (80-100) fL MCH 27.1 (26-34) PG MCHC 32.7 (30-36) % RDW 14.7 (11.6-14.8) % Plt Count 188 (150-400) X10^3/uL Neut % (Auto) 55.1 (50-75) % Lymph % (Auto) 25.1 (25-40) % [place] % (Auto) 16.0 H (3-14) % Eos % (Auto) 3.0 (2-4) % Baso % (Auto) 0.8 (0-2) % Neut # (Auto) 3200 (1986-1869) /uL Lymph # (Auto) 1500 (7229-0772) /uL [place] # (Auto) 900 (0-900) /uL Eos # (Auto) 200 (0-450) /uL Baso # (Auto) 0 (0-100) /uL Sodium 139 (137-145) mmol/L Potassium 4.1 (3.4-5.1) mmol/L Chloride 105 (98-107) mmol/L Carbon Dioxide 29 (22-32) mmol/L BUN 20 (9-20) mg/dL Creatinine 0.77 (0.66-1.25) mg/dL Estimated GFR > 60 (>60) mL/min BUN/Creatinine Ratio 26.0 H (6-22) Glucose 108 H (70-100) mg/dL Calcium 9.3 (8.4-10.2) mg/dL Imaging Data Extremity x-ray #1: Radiologist's Impression: No fractures, no foreign bodies MDM Narrative Medical decision making narrative: Culture was taken of the wound. It was irrigated. His tetanus was updated. Do suspect a extensor tendon injury as he was I able to extend his ring finger. No fractures or foreign bodies noted on the x-rays. He obviously has a cellulitis to his hand. Given his presentation the fact that is on his hand he would benefit from admission to the hospital on IV antibiotics. Discussed the case with Dr. Benítez hospitalist on-call who will admit. Also discussed the case with Dr. Ruiz on-call with orthopedics who will see the patient upon admission later this morning. Discussed the need for admission with the patient. He expressed understanding and agreement with plan. Discharge Plan Departure Patient Disposition: Admitted As Inpatient Clinical Impression: Cellulitis, Extensor tendon laceration, finger, open wound Admit Date/Time: 11/11/23 03:39 Admit Provider: Norbert Patrick
[2023-11-11] MEDS: TET,DIPH,PERTUSS(ACELL),VAC/PF 0.5 ML SYRINGE IM (02:36)
[2023-11-11] MEDS: cefTRIAXone 1,000 MG in SODIUM CHLORIDE 0.9% 100 ML 200 MG IV (02:42)
[2023-11-11 02:44] LABS: Add Manual Diff / Slide Review NO; Basophils Absolute Auto 0 /uL (0-100); Basophils Percent Auto 0.8 % (0-2); Eosinophils Absolute Auto 200 /uL (0-450); Hematocrit 40.2 % (41-53); Hemoglobin 13.2 g/dL (13.5-17.5); Lymphocytes Absolute Auto 1500 /uL (1100-4500); Lymphocytes Percent Auto 25.1 % (25-40); Mean Corpuscular HGB Conc 32.7 % (30-36); Mean Corpuscular Hemoglobin 27.1 PG (26-34); Mean Corpuscular Volume 82.6 fL (80-100); Monocytes Absolute Auto 900 /uL (0-900); Neutrophils Absolute Auto 3200 /uL (1500-7000); Neutrophils Percent Auto 55.1 % (50-75); Platelet Count 188 X10^3/uL (150-400); Red Blood Cell Count 4.86 X10^6/uL (4.5-5.9); Red Cell Distribution Width 14.7 % (11.6-14.8); White Blood Cell Count 5.9 X10^3/uL (4.5-11.0)
[2023-11-11 02:52] LABS: Blood Urea Nitrogen 20 mg/dL (9-20); Calcium 9.3 mg/dL (8.4-10.2); Carbon Dioxide 29 mmol/L (22-32); Chloride 105 mmol/L (98-107); Estimated Glomerular Filt Rate > 60 mL/min (>60); Glucose 108 mg/dL (70-100); HEMOLYSIS < 15 (0-50); Potassium 4.1 mmol/L (3.4-5.1); Sodium 139 mmol/L (137-145)
[2023-11-11] MEDS: VANCOMYCIN 1,000 MG/200 ML PIGGYBACK 200 MG IV (03:17)
[2023-11-11] MEDS: ONDANSETRON 4 MG/2 ML INJ IV (03:57)
[2023-11-11 04:22] VITALS: BP 149/94; PULSE 64; RESP 16; TEMP 36.3; O2SAT 98
[2023-11-11 04:27] VITALS: BMI 23.0
[2023-11-11] MEDS: OXYCODONE IR 5 MG TABLET PO ×2 (04:47→08:10)
[2023-11-11] MEDS: AMPICILLIN/SULBACTAM 3 GM 3 GM in SODIUM CHLORIDE 0.9% 100 ML IV ×2 (05:02→10:53)
--- NOTE | 2023-11-11 05:10 | P.HP_ITS ---
History of Present Illness History of Present Illness Date Patient Seen: 11/11/23 Time Patient Seen: 05:10 Chief complaint: rt hand injury Narrative: The pt is a homeless gentleman who was sorting through some trash when he cut his hand on a tin can, this occurred 24 hours prior to coming to the ER. He reports that he did have subjective fevers and chills but no N/V/D. He denies any past medical history other than chronic kneed pain and COPD. He admits to smoking tobacco and recreational drug use. In the ER, the provider reported seeing a 2 cm laceration with pus coming from the wound and erythema on the dorsum of the hand. FORMERLY [facility], [facility]–1983 Medical History Chronic emphysema syndrome Opioid use disorder, severe, in sustained remission Social History household members: friend(s) Smoking Status: Former smoker alcohol intake: former Meds Home Medications and Allergies Home Medications Medication Instructions Recorded Confirmed Type albuterol sulfate 90 mcg/actuation 2 puff inhalation Q6H PRN 02/16/22 11/11/23 Rx aerosol inhaler shortness of breath or wheezing #8.5 grams Allergies Allergy/AdvReac Type Severity Reaction Status Date / Time ketorolac Allergy Verified 11/11/23 02:48 gabapentin AdvReac Unconscious Verified 11/11/23 02:48 Exam Vital Signs (past 8 hours): - 11/11/23 02:23 Temperature 98 F Pulse Rate 78 Respiratory Rate 20 Blood Pressure 143/90 H Pulse Oximetry 100 Oxygen Delivery Method Room Air Oxygen Delivery Method Room Air Const General: cooperative and disheveled Nutritional Appearance: thin Resp Auscultation: clear to auscultation bilaterally Cardio Rate: regular rate Rhythm: regular rhythm Skin Other: right hand with gauze, I did not take this down, Objective Labs 11/11/23 02:35 11/11/23 02:35 Labs: Laboratory Results - last 24 hr 11/11/23 02:35 WBC 5.9 RBC 4.86 Hgb 13.2 L Hct 40.2 L MCV 82.6 MCH 27.1 MCHC 32.7 RDW 14.7 Plt Count 188 Neut % (Auto) 55.1 Lymph % (Auto) 25.1 [place] % (Auto) 16.0 H Eos % (Auto) 3.0 Baso % (Auto) 0.8 Neut # (Auto) 3200 Lymph # (Auto) 1500 [place] # (Auto) 900 Eos # (Auto) 200 Baso # (Auto) 0 Sodium 139 Potassium 4.1 Chloride 105 Carbon Dioxide 29 BUN 20 Creatinine 0.77 Estimated GFR > 60 BUN/Creatinine Ratio 26.0 H Glucose 108 H Calcium 9.3 Assessment & Plan Assessment & Plan narrative: Right hand cellulitis- will start the pt on Unasyn for typical coverage for skin ben, He received one dose of vanco and rocephin in the ER. Tetnus booster given in the ER, pain meds and antiemetics ordered, UDS pending. ER provider has notified the ortho semiconductor engineer regarding this patient.
--- NOTE | 2023-11-11 07:36 | P.HP_ITS ---
History of Present Illness History of Present Illness Date Patient Seen: 11/11/23 Chief complaint: Rt hand injury Narrative: From night doctor: The pt is a homeless gentleman who was sorting through some trash when he cut his hand on a tin can, this occurred 24 hours prior to coming to the ER. He reports that he did have subjective fevers and chills but no N/V/D. He denies any past medical history other than chronic kneed pain and COPD. He admits to smoking tobacco and recreational drug use. In the ER, the provider reported seeing a 2 cm laceration with pus coming from the wound and erythema on the dorsum of the hand. Additional history: This morning notes the hand feels better. There was a fair amount of drainage in the ER. He can move the hand freely. He notes he is really having withdrawal symptoms as he uses heroin 2 to 3 times a day. He initially agreed to take methadone here to see if this would help. He really has nothing else to add other than his daily use of heroin. He smokes or snorts heroin and does not inject. He did note several times he is got side to take a hit off a marijuana cigarette to take the edge off. [facility] Medical History Chronic emphysema syndrome Opioid use disorder, severe, in sustained remission Social History household members: friend(s) Smoking Status: Former smoker alcohol intake: former Meds Home Medications and Allergies Home Medications Medication Instructions Recorded Confirmed Type albuterol sulfate 90 mcg/actuation 2 puff inhalation Q6H PRN 02/16/22 11/11/23 Rx aerosol inhaler shortness of breath or wheezing #8.5 grams amoxicillin 500 mg-potassium 1 tab PO TID #20 tabs 11/11/23 Rx clavulanate 125 mg tablet (Augmentin) Allergies Allergy/AdvReac Type Severity Reaction Status Date / Time ketorolac Allergy Verified 11/11/23 02:48 gabapentin AdvReac Unconscious Verified 11/11/23 02:48 Review of Systems Review of Systems Narrative: All else reviewed and otherwise unremarkable except as noted in the history and physical. Exam Vital Signs (past 8 hours): - 11/11/23 02:23 11/11/23 04:22 Temperature 98 F 97.4 F L Pulse Rate 78 64 Respiratory Rate 20 16 Blood Pressure 143/90 H 149/94 H Pulse Oximetry 100 98 Oxygen Delivery Method Room Air Oxygen Flow Rate 0 Oxygen Delivery Method Room Air Oxygen Flow Rate 0 Narrative Exam Narrative: NAD, alert and oriented, he has pressured speech and appears anxious. He is chronically ill and appears to be underweight. Normocephalic skull, EOMI, anicteric sclera, symmetric pupils. Oropharynx unremarkable, no droop. Neck supple, midline trachea, no adenopathy. Lungs clear, normal rate and effort. Heart regular, no murmur gallop or rub. Abdomen is soft, non distended and non tender. Extremities are free of edema. Skin is free of rash or lesions. Joints are not swollen or deformed. Judgment appears to be abnormal. The hand is unwrapped and really does not appear to be swollen, red or particularly warm. There is a small laceration over the dorsal aspect of the hand with no active drainage. Objective Imaging Hand Xray: Radiologist's impression: Bones: No fracture or dislocation Soft tissues: No radiopaque foreign body. Soft tissue swelling is present. IMPRESSION: No acute osseous abnormality. No radiopaque foreign body. If there is high concern for occult injury, consider repeat radiography or cross-sectional imaging. Agree with prelim report. Labs 11/11/23 02:35 11/11/23 02:35 Labs: Laboratory Results - last 24 hr 11/11/23 02:35 WBC 5.9 RBC 4.86 Hgb 13.2 L Hct 40.2 L MCV 82.6 MCH 27.1 MCHC 32.7 RDW 14.7 Plt Count 188 Neut % (Auto) 55.1 Lymph % (Auto) 25.1 [place] % (Auto) 16.0 H Eos % (Auto) 3.0 Baso % (Auto) 0.8 Neut # (Auto) 3200 Lymph # (Auto) 1500 [place] # (Auto) 900 Eos # (Auto) 200 Baso # (Auto) 0 Sodium 139 Potassium 4.1 Chloride 105 Carbon Dioxide 29 BUN 20 Creatinine 0.77 Estimated GFR > 60 BUN/Creatinine Ratio 26.0 H Glucose 108 H Calcium 9.3 Assessment & Plan Assessment & Plan narrative: 1. Right hand laceration and cellulitis, present on admission and active. -we will continue ceftriaxone and vancomycin, wound culture. 2. COPD, present on admission and active. -duo nebs as needed. 3. Polysubstance abuse, present on admission and active. -UDS pending, monitor for evidence of agitation or withdrawal symptoms. -we will start methadone 10 mg t.i.d. for opiate withdrawal symptoms. Patient was admitted to inpatient status. Anticipation of 2 midnights length of stay required for medical necessity. Full code. No proxy decision maker identified. He is strongly encouraged to stay overnight for ongoing IV antibiotics. The risks and not stay overnight includes worsening of the hand infection, loss of hand her hand function. Time Spent With Patient Time with patient: 30 to 49 minutes with 50% spent counseling/coordinating care Quality MIPS - Admit I confirm the patient?s Advance Care Plan is present, Code status is documented, Surrogate decision maker is in patient?s record [If Yes, STOP here]: Yes MIPS - Meds 'Current medications' to include all prescriptions, [id number] products, herbals, cannabis/cannabidiol products, and vitamin/mineral/dietary (nutritional) supplements. I have utilized all available resources to obtain, update, or review the patient?s current medications. [If Yes, STOP here]: Yes
[2023-11-11 08:00] VITALS: BP 128/76; PULSE 74; RESP 16; TEMP 36.1; O2SAT 97
[2023-11-11] MEDS: ACETAMINOPHEN 325 MG TABLET 650 MG PO (08:10)
[2023-11-11] MEDS: ONDANSETRON 4 MG ODT PO (08:10)
[2023-11-11 08:17] LABS: Ur Creatinine Normal (Normal); Ur Specific Gravity Normal (Normal); Urine pH Normal (Normal)
[2023-11-11 08:18] LABS: UR Morphine/Opiate cutoff 300 Positive (Negative); Urine Amphetamines Positive (Negative); Urine Barbiturates Negative (Negative); Urine Benzodiazepines Negative (Negative); Urine Cocaine Negative (Negative); Urine MDMA Negative (Negative); Urine Methadone Negative (Negative); Urine Methamphetamines Positive (Negative); Urine Oxycodone Positive (Negative); Urine Phencyclidine Negative (Negative); Urine Tetrahydrocannabinol Positive (Negative); Urine Tricyclic Antidepressant Negative (Negative)
[2023-11-11] MEDS: METHADONE 10 MG TABLET PO (12:20)
--- NOTE | 2023-11-11 13:47 | P.DS_ITS ---
History of Present Illness History of Present Illness Chief complaint: Rt hand injury Narrative: From night doctor: The pt is a homeless gentleman who was sorting through some trash when he cut his hand on a tin can, this occurred 24 hours prior to coming to the ER. He reports that he did have subjective fevers and chills but no N/V/D. He denies any past medical history other than chronic kneed pain and COPD. He admits to smoking tobacco and recreational drug use. In the ER, the provider reported seeing a 2 cm laceration with pus coming from the wound and erythema on the dorsum of the hand. Additional history: This morning notes the hand feels better. There was a fair amount of drainage in the ER. He can move the hand freely. He notes he is really having withdrawal symptoms as he uses heroin 2 to 3 times a day. He initially agreed to take methadone here to see if this would help. He really has nothing else to add other than his daily use of heroin. He smokes or snorts heroin and does not inject. He did note several times he is got side to take a hit off a marijuana cigarette to take the edge off. Discharge Providers Provider Date of admission: 11/11/23 03:39 Discharge Date: 11/11/23 Primary care physician: None Consults: 11/11/23 03:39 Consult to Orthopedic Surgery Stat Comment: Consulting Provider: Jovanny Ruiz Reason for consultation: Extensor tendon injury Has provider been notified: Yes Discharge provider: Flynn Nunez MD Summary Hospital Course Discharge Diagnosis: 1. Right hand laceration and cellulitis, present on admission and active. -we gave ceftriaxone and vancomycin, wound culture. 2. COPD, present on admission and active. -duo nebs as needed. 3. Polysubstance abuse, present on admission and active. -UDS pending, monitor for evidence of agitation or withdrawal symptoms. -we started methadone 10 mg t.i.d. for opiate withdrawal symptoms. 4. Against medical advice discharge. Hospital Course: He was admitted with a hand laceration and infection. The patient was started on IV antibiotics. He has a daily heroin user and became quite agitated. He said he needed to have something to take the edge off including the idea of leaving the hospital for few minutes to smoke some marijuana. When he found that this was against policy became more agitated but did agree to a dose of methadone to see if this would improve his symptoms and allow him to stay longer. He remained agitated and left against medical advice shortly after his dose of methadone. He gave [facility] as a pharmacy to send antibiotics to. These were going to be sent electronically but apparently [facility] has closed. A printed prescription was brought down to his room but he would left abruptly. Status at Discharge Cognitive/behavioral status at discharge: oriented Functional status at discharge: independent ambulation Overall status at discharge: patient is progressing back to baseline Time Spent with Patient Time spent: Greater than 30 minutes Exam Vital Signs (past 8 hours): - 11/11/23 08:00 Temperature 96.9 F L Pulse Rate 74 Respiratory Rate 16 Blood Pressure 128/76 Pulse Oximetry 97 Oxygen Delivery Method Room Air Oxygen Flow Rate 0 Narrative Exam Narrative: NAD, alert and oriented, he has pressured speech and appears anxious. He is chronically ill and appears to be underweight. Normocephalic skull, EOMI, anicteric sclera, symmetric pupils. Oropharynx unremarkable, no droop. Neck supple, midline trachea, no adenopathy. Lungs clear, normal rate and effort. Heart regular, no murmur gallop or rub. Abdomen is soft, non distended and non tender. Extremities are free of edema. Skin is free of rash or lesions. Joints are not swollen or deformed. Judgment appears to be abnormal. The hand is unwrapped and really does not appear to be swollen, red or particularly warm. There is a small laceration over the dorsal aspect of the hand with no active drainage. Objective Imaging Hand Xray: Radiologist's impression: IMPRESSION: No acute osseous abnormality. No radiopaque foreign body. If there is high concern for occult injury, consider repeat radiography or cross-sectional imaging. Agree with prelim report. Labs 11/11/23 02:35 11/11/23 02:35 Labs: Laboratory Results - last 24 hr 11/11/23 11/11/23 02:35 07:55 WBC 5.9 RBC 4.86 Hgb 13.2 L Hct 40.2 L MCV 82.6 MCH 27.1 MCHC 32.7 RDW 14.7 Plt Count 188 Neut % (Auto) 55.1 Lymph % (Auto) 25.1 [place] % (Auto) 16.0 H Eos % (Auto) 3.0 Baso % (Auto) 0.8 Neut # (Auto) 3200 Lymph # (Auto) 1500 [place] # (Auto) 900 Eos # (Auto) 200 Baso # (Auto) 0 Sodium 139 Potassium 4.1 Chloride 105 Carbon Dioxide 29 BUN 20 Creatinine 0.77 Estimated GFR > 60 BUN/Creatinine Ratio 26.0 H Glucose 108 H Calcium 9.3 U Opiates 300ng/mL cut Positive H Ur Oxycodone Screen Positive H Urine Methadone Screen Negative Ur Barbiturates Screen Negative U Tricyclic Antidepress Negative Ur Phencyclidine Scrn Negative Ur Amphetamines Screen Positive H U Methamphetamines Scrn Positive H Ur MDMA Scrn (Ecstasy) Negative U Benzodiazepines Scrn Negative Urine Cocaine Screen Negative U Marijuana (THC) Screen Positive H Urine pH Normal Urine Specific [place] Normal Ur Creatinine Normal PFSH Medical History Chronic emphysema syndrome Opioid use disorder, severe, in sustained remission Social History household members: friend(s) Smoking Status: Former smoker alcohol intake: former Discharge Assessment & Plan Assessment and Plan Assessment: 1. Right hand laceration and cellulitis, present on admission and active. -we gave ceftriaxone and vancomycin, wound culture. 2. COPD, present on admission and active. 3. Polysubstance abuse, present on admission and active. -UDS pending, monitor for evidence of agitation or withdrawal symptoms. -we started methadone 10 mg t.i.d. for opiate withdrawal symptoms. 4. Against medical advice discharge. Plan of Treatment: He left against medical advice. The prescription for Augmentin was going to be sent to [facility] per his request but this pharmacy is closed and he left to abruptly that he given an alternate choice of pharmacy or printed prescription. Discharge Plan Discharge Plan Patient Disposition: Left Against Medical Advice Provider Discharge Comment: Patient was leaving against medical advice. Antibiotics will be provided to [facility]. He was advised that his hand infection may get worse and good cause loss of hand function or loss of hand. Discharge orders & Medications Prescriptions: New amoxicillin-pot clavulanate [Augmentin] 500-125 mg tablet 1 tab PO TID Qty: 20 0RF Continued albuterol sulfate 90 mcg/actuation HFA aerosol inhaler 2 puff inhalation Q6H PRN (Reason: shortness of breath or wheezing) Qty: 8.5 2RF Medication counseling provided by Pharmacist: No Discharge Health Status Multidrug resistant organism: No MDRO Diet/Activity/Treatments Diet: Diet as Tolerated Skin/Wound/Dressing Care Report to your healthcare provider any signs of infection, such as:: chills, fever, increased pain and unusual drainage Visit Report/Discharge Packet Stand Alone Forms: Patient Portal/API Discharge Data Attending Provider: Norbert Patrick Admit Date/Time: 11/11/23 03:39
--- NOTE | 2023-11-11 13:52 | PC.NURSE ---
Day Shift Pt is refusing medical care and deciding to leave AMA. Pt has been educated and advised on need for IV antibiotic use but is refusing care and deciding to go home at this time. Pt is being sent home on oral antibiotics per Dr. Nunez.
--- NOTE | 2023-11-11 14:43 | CM.DANOTE ---
Brief DCP Assessment Note Pt is a 57yo M here following hand injury/cellulitis. Pt was getting IV abx and left AMA prior to conversation with this SPOOL HAULER. PCP NONE Payer [facility] and Medicaid SPOOL HAULER reviewed EMR. Per hospitalist in morning rounds, wanted pt to continue IV abx for another day or so. Per CC Linsey after delivering pt his TREVINO, pt was reporting wanting to go utilize substances. Per nursing staff, pt wanted to leave to to smoke marijuana due to it helping his nausea. Provider to dc him with PO abx AMA. Per ED documentation, pt cut hand after going through trash, pt unhoused. Per initial market research senior project manager, pt reported to living in Mobile Home with friends. Pt left prior to being seen by this SPOOL HAULER. CM team will continue to follow as needed. AFRICA Mcqueen Discharge Planning/Care Management Advanced directive, confirm from FAMILY Start: 11/11/23 04:30 Freq: Q24H Status: Discharge Protocol: Document 11/11/23 04:30 AT (Rec: 11/11/23 04:45 AT [id number]) Advance Directive, confirm on record Time 04:45 Person contacted self Copy received No CM Discharge Assessment Start: 11/11/23 14:40 Freq: Status: Active Protocol: Document 11/11/23 14:40 SL (Rec: 11/11/23 14:42 SL [id number]) Discharge Planning Assessment Assigned Pharmacovigilance Specialist AFRICA Barros DPOA/Assigned Designee Name mother [place] Contact Information [phone] Advance Directives? Yes Advance Directives on File No History Provided By Medical Record Prior Living Arrangements Mobile home Comment told provider that he is unhoused. Told nursing staff he lives with friends in mobile home. Comment pt left AMA prior to social work/dcp assessment Barriers to Discharge No Comment patient left AMA Discharge Plan Left AMA Transportation Arrangement POV via friend Referrals Initiated None needed Additional Comment At this time Whiteboard Updated in Patient Room with No name and ext. # of Pharmacovigilance Specialist Review Status In Process Next Review Type Continued Stay Review
--- NOTE | 2023-11-11 17:59 | P.CONS_ITS ---
History of Present Illness Consult details Chief complaint: Rt hand injury Narrative: Attempted to see the patient for a consult due to a laceration to his hand but patient has left Against Medical Advice and he has been unable to be evaluated by orthopedics. Meds Home Medications and Allergies Home Medications Medication Instructions Recorded Confirmed Type albuterol sulfate 90 mcg/actuation 2 puff inhalation Q6H PRN 02/16/22 11/11/23 Rx aerosol inhaler shortness of breath or wheezing #8.5 grams amoxicillin 500 mg-potassium 1 tab PO TID #20 tabs 11/11/23 Rx clavulanate 125 mg tablet (Augmentin) Allergies Allergy/AdvReac Type Severity Reaction Status Date / Time ketorolac Allergy Verified 11/11/23 02:48 gabapentin AdvReac Unconscious Verified 11/11/23 02:48 Exam Vital Signs (past 8 hours): Oxygen Delivery Method Room Air Oxygen Flow Rate 0 Objective Labs 11/11/23 02:35 11/11/23 02:35 Labs: Laboratory Results - last 24 hr 11/11/23 11/11/23 02:35 07:55 WBC 5.9 RBC 4.86 Hgb 13.2 L Hct 40.2 L MCV 82.6 MCH 27.1 MCHC 32.7 RDW 14.7 Plt Count 188 Neut % (Auto) 55.1 Lymph % (Auto) 25.1 Webb % (Auto) 16.0 H Eos % (Auto) 3.0 Baso % (Auto) 0.8 Neut # (Auto) 3200 Lymph # (Auto) 1500 Webb # (Auto) 900 Eos # (Auto) 200 Baso # (Auto) 0 Sodium 139 Potassium 4.1 Chloride 105 Carbon Dioxide 29 BUN 20 Creatinine 0.77 Estimated GFR > 60 BUN/Creatinine Ratio 26.0 H Glucose 108 H Calcium 9.3 U Opiates 300ng/mL cut Positive H Ur Oxycodone Screen Positive H Urine Methadone Screen Negative Ur Barbiturates Screen Negative U Tricyclic Antidepress Negative Ur Phencyclidine Scrn Negative Ur Amphetamines Screen Positive H U Methamphetamines Scrn Positive H Ur MDMA Scrn (Ecstasy) Negative U Benzodiazepines Scrn Negative Urine Cocaine Screen Negative U Marijuana (THC) Screen Positive H Urine pH Normal Urine Specific [place] Normal Ur Creatinine Normal PFSH Medical History Chronic emphysema syndrome Opioid use disorder, severe, in sustained remission Social History household members: friend(s) Tobacco & Substance Use Smoking Status: Former smoker alcohol intake: former
--- NOTE | 2023-11-19 17:14 | PC.NURSE ---
Late Entry: Vancomycin infusion initiated 11/10 at 0317 complete at 0418.
== END 2023-11-11 14:13 | disposition left against medical advice (07) ==
LOC: ED 03:38 → AC 04:12
PROVIDERS: Admitting Provider Internal Medicine; Emergency Provider Emergency Medicine; Referring Provider Emergency Medicine; Visit Provider Internal Medicine
DX: S61.411A Laceration without foreign body of right hand, initial encounter (principal); L03.113 Cellulitis of right upper limb; Z53.29 Procedure and treatment not carried out because of patient's decision for other reasons; Z23 Encounter for immunization; W26.8XXA Contact with other sharp object(s), not elsewhere classified, initial encounter; Y92.89 Other specified places as the place of occurrence of the external cause; Z59.00 Homelessness unspecified; J44.9 Chronic obstructive pulmonary disease, unspecified; F19.10 Other psychoactive substance abuse, uncomplicated
CPT/HCPCS: 73130; 80048; 80305; 85025; 87070; 87205; 90471; 96365; 96366; 96367; 96375; 99284; G0378; 90715; A9270; J0295; J0696; J2405

== ENCOUNTER → 2023-12-11 11:54 | Outpatient (CLI) | payer MEDICARE, MEDICAID, SELFPAY ==
[2023-11-11 04:27] VITALS: BMI 23.0
[2023-12-18 13:09] LABS: Miscellaneous to LabCorp 10
== END ==
PROVIDERS: Referring Provider Orthopaedic Surgery Adult Reconstructive Orthopaedic Surgery; Visit Provider Orthopaedic Surgery Adult Reconstructive Orthopaedic Surgery
DX: M17.31 Unilateral post-traumatic osteoarthritis, right knee (principal)
CPT/HCPCS: 80307; 80359; 80361

== ENCOUNTER → 2024-03-19 08:32 | Outpatient (CLI) | payer MEDICARE, MEDICAID, SELFPAY | PROVIDERS: PCP Family Medicine; Referring Provider Family Medicine; Visit Provider Family Medicine | DX: J44.9 Chronic obstructive pulmonary disease, unspecified (principal); Z87.891 Personal history of nicotine dependence; R94.2 Abnormal results of pulmonary function studies | CPT/HCPCS: 94060; 94726; 94729 ==

== ENCOUNTER → 2024-03-22 13:25 | Outpatient (CLI) | payer MEDICARE, MEDICAID, SELFPAY ==
--- NOTE | 2024-03-22 | DI.CT.S_ITS ---
PROCEDURE: CT LUNG LOW DOSE SCREENING INDICATIONS: NICOTINE DEPENDENCE, CIGARETTES, IN REMISSION TECHNIQUE: Noncontrast 2.0-2.5 mm thick sections acquired from the pulmonary apices to the posterior costophrenic angles. 7 mm thick axial MIP, and 5 mm coronal and sagittal reformats were then acquired. For radiation dose reduction, the following was used: automated exposure control, adjustment of mA and/or kV according to patient size. COMPARISON: None. FINDINGS: Image quality: Diagnostic. Lower Neck: No enlarged lymph nodes. Thyroid: No thyroid nodules which require sonographic follow up, per consensus guidelines. Axillae: No enlarged lymph nodes. Chest Wall: Unremarkable. Bones: Unremarkable. Lungs and Pleura: No pneumothorax or pleural effusions. No consolidation or suspicious nodules. Calcified granuloma in the right upper lobe. Heart: Heart size is normal. No pericardial effusion. Thoracic Vessels: The aorta and pulmonary arteries demonstrate normal size. Mediastinum and Jadyn: No enlarged lymph nodes. Esophagus: No wall thickening. No hiatal hernia. Upper Abdomen: Visualized upper abdomen solid organs and bowel loops appear normal. IMPRESSION: No suspicious pulmonary nodules. LUNG-RADS 1; continued annual screening, if eligible. Clinically Significant Non-pulmonary Findings: None. Dictated by: Giacomo Mccray M.D. on 03/22/2024 at 16:47 Approved by: Giacomo Mccray M.D. on 03/22/2024 at 16:48
== END ==
PROVIDERS: PCP Family Medicine; Referring Provider Family Medicine; Visit Provider Family Medicine
DX: Z12.2 Encounter for screening for malignant neoplasm of respiratory organs (principal); F17.211 Nicotine dependence, cigarettes, in remission
CPT/HCPCS: 71271

== ENCOUNTER 2024-03-31 13:21 | Day surgery (SDC) | payer MEDICARE, MEDICAID, SELFPAY ==
[2024-03-31 13:47] VITALS: BP 125/81; PULSE 76; RESP 20; TEMP 37.2; O2SAT 98
--- NOTE | 2024-03-31 13:47 | P.HP_ITS ---
History of Present Illness History of Present Illness Chief complaint: Screening Colonoscopy [facility] Medical History Chronic emphysema syndrome Opioid use disorder, severe, in sustained remission Social History household members: friend(s) Smoking Status: Former smoker alcohol intake: former Meds Home Medications and Allergies Home Medications Medication Instructions Recorded Confirmed Type albuterol sulfate 90 mcg/actuation 2 puff inhalation Q6H PRN 02/16/22 03/31/24 Rx aerosol inhaler shortness of breath or wheezing #8.5 grams amoxicillin 500 mg-potassium 1 tab PO TID #20 tabs 11/11/23 Rx clavulanate 125 mg tablet (Augmentin) Allergies Allergy/AdvReac Type Severity Reaction Status Date / Time ketorolac Allergy Verified 11/11/23 02:48 gabapentin AdvReac Unconscious Verified 11/11/23 02:48 Exam Narrative Exam Narrative: Oropharynx free of lesions Chest clear to auscultation percussion Cardiac exam reveals no S3 or murmur Assessment & Plan Assessment & Plan narrative: Need for screening colonoscopy. Possibly his 1st. Risks, benefits, alternatives have been explained. Also chronic narcotic use is above. Time-Based Coding :: [TOTAL MINUTES] spent with patient and on the chart (including review of chart, obtaining history, exam, reviewing outside data, placing orders, documenting exam and treatment plan, and counseling patient) on [DATE].
--- NOTE | 2024-03-31 13:49 | PM.OP.COLON ---
Operative Date/Time/Diagnoses Date of procedure: 03/31/24 Pre-op diagnosis: See indication and findings Procedure & Clinicians Study performed: Colonoscopy Indications: Screening Surgeon: Julio Dixon Procedure Notes Procedure in detail: After informed consent was obtained patient was placed in left lateral decubitus position. The video colonoscope was introduced the rectum slowly advanced. Preparation was poor with thick liquid stool and semi solid stool present. The scope was removed. The patient tolerated procedure well. Blood loss none Complications none Sedation mac Findings 1. Poor preparation -aborted colonoscopy due to prep Given the patient's situation I would suggest stool based test for screening.
[2024-03-31 14:03] VITALS: BP 113/76; PULSE 72; RESP 14; TEMP 36.2; O2SAT 97
[2024-03-31 14:09] VITALS: BP 115/80; PULSE 70; RESP 14; O2SAT 96
[2024-03-31] MEDS: LACTATED RINGERS 1,000 ML 42 ML IV (14:14)
[2024-03-31 14:15] VITALS: BP 121/84; PULSE 68; RESP 14; O2SAT 96
[2024-03-31 14:16] VITALS: BP 117/76; PULSE 67; RESP 18; TEMP 36.2; O2SAT 99
== END 2024-03-31 14:38 | disposition home or self-care (01) ==
PROVIDERS: PCP Family Medicine; Referring Provider Internal Medicine Gastroenterology; Visit Provider Internal Medicine Gastroenterology
PROC: 0DJD8ZZ Inspection of Lower Intestinal Tract, Via Natural or Artificial Opening Endoscopic (ICD-10-PCS; CPT 45378; principal; 2024-03-31 14:30)
DX: Z12.11 Encounter for screening for malignant neoplasm of colon (principal); Z53.09 Procedure and treatment not carried out because of other contraindication
CPT/HCPCS: G0121; J2704

== ENCOUNTER 2024-05-20 11:54 | Emergency (ER) | payer MEDICARE, MEDICAID, SELFPAY ==
[2024-05-20 11:56] VITALS: BP 139/90; PULSE 89; RESP 20; TEMP 37.4; O2SAT 93
--- NOTE | 2024-05-20 12:01 | DI.RAD.S_ITS ---
PROCEDURE: XR CHEST 1V INDICATIONS: chest pain TECHNIQUE: One view of the chest was acquired. COMPARISON: None. FINDINGS: Surgical changes and devices: None. Lungs and pleura: Lungs are clear. No pleural effusions or pneumothorax. Mediastinum: Mediastinal contours appear normal. Heart size is normal. Bones and chest wall: No suspicious bony lesions. Overlying soft tissues appear unremarkable. IMPRESSION: No acute cardiopulmonary abnormality is seen. Dictated by: Luci Paulino MD, PhD on 05/20/2024 at 12:36 Approved by: Luci Paulino MD, PhD on 05/20/2024 at 12:36
--- NOTE | 2024-05-20 12:01 | EKG_ITS ---
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
--- NOTE | 2024-05-20 12:04 | ED_ITS ---
HPI - URI/Sore Throat General Chief Complaint: Upper Respiratory Symptoms Stated Complaint: poss pneumonia Time Seen by Provider: 05/20/24 12:04 Source: patient Mode of arrival: Ambulatory History of Present Illness HPI Narrative: Patient is a 58-year-old male history of polysubstance abuse on Suboxone, emphysema, asthma, comes into the ED from home for evaluation of cough and shortness of breath ongoing and persistent for the past few days. States that he has a history of pneumonia therefore is worried that he might have this. He denies any recent travel denies any headache visual disturbances chest pain fever chills nausea vomiting abdominal pain or any other GI/ symptoms. Related Data Previous Rx's Medication Instructions Recorded albuterol sulfate 90 mcg/actuation 2 puff inhalation Q6H PRN 02/16/22 aerosol inhaler shortness of breath or wheezing #8.5 grams amoxicillin 500 mg-potassium 1 tab PO TID #20 tabs 11/11/23 clavulanate 125 mg tablet (Augmentin) albuterol sulfate 90 mcg/actuation 2 inh inhalation Q6H PRN shortness 05/20/24 aerosol inhaler of breath or wheezing #8.5 grams Allergies Allergy/AdvReac Type Severity Reaction Status Date / Time ketorolac Allergy Verified 11/11/23 02:48 gabapentin AdvReac Unconscious Verified 11/11/23 02:48 Review of Systems Review of Systems Narrative: General: Denies fever, chills, weight loss HEENT: Denies headache, eye drainage, eye irritation, head trauma, sore throat, voice change Cardiovascular: Denies any chest pain, palpitations, shortness of breath, tachycardia Respiratory: Positive for cough, shortness of breath GI/: Denies any abdominal pain, nausea, vomiting, diarrhea, bright red blood per rectum, melanotic stools, urinary frequency, urinary retention, dysuria, hematuria MSK: Denies any joint pain, muscle pains, swelling Skin: Denies any rashes, lesions, discoloration Neuro: Denies any headache, lightheadedness, dizziness, fainting, weakness Psych: Denies SI/HI Patient History Medical History Chronic emphysema syndrome Opioid use disorder, severe, in sustained remission Social History household members: friend(s) Smoking Status: Former smoker alcohol intake: former Smoking Status: Former smoker tobacco type: cigarettes alcohol intake frequency: 0-2 drinks per day Substance Use Type: marijuana and heroin Exam Narrative Exam Narrative: General: Cooperative, comfortable, well-developed, not in acute distress HEENT: Normocephalic, atraumatic, PERRLA, normal sclera, eyelids normal, Neck: Active full range of motion, atraumatic Chest: Normal to inspection, negative crepitus, no overlying erythema ecchymosis Respiratory: Normal respiratory effort, not in acute respiratory distress, clear to auscultation bilaterally negative cough, wheeze, tachypnea, rhonchi, rales Cardiology: Regular rate rhythm negative gallop, murmur, rubs GI/: Normal to inspection, soft, nonrigid, no tenderness to palpation, exam deferred MSK: Full range of active range of motion of all 4 extremities, atraumatic Skin: No rashes lesions noted Neuro: Alert awake oriented x3, moves all 4 extremities spontaneously, cranial nerves intact, able to answer all questions appropriately follows commands appropriately Psych: Cooperative, negative suicidal or homicidal ideations Initial Vital Signs Initial Vital Signs: Vital Signs Temperature 99.4 F 05/20/24 11:56 Pulse Rate 89 05/20/24 11:56 Respiratory Rate 20 05/20/24 11:56 Blood Pressure 139/90 05/20/24 11:56 Pulse Oximetry 93 05/20/24 11:56 Oxygen Delivery Method Room Air 05/20/24 11:56 Course Orders Ordered: ED Orders 05/20/24 12:01 XR chest 1V Stat EKG-12 Lead Stat 05/20/24 12:08 Complete Blood Count AUTO DIFF Stat Comprehensive Metabolic Panel Stat Covid-19 + FLU A/B + RSV - PCR Stat Lipase Stat Magnesium Stat NT-proBNP (BNP-Adult 18+) Stat PTT Partial Thromboplastin Juan Jose Stat Prothrombin Time INR Stat Troponin & CK Cardiac Panel Stat Vital Signs Vital signs: Vital Signs - 8 hr 05/20/24 11:56 05/20/24 12:10 Temperature 99.4 F Pulse Rate 89 78 Respiratory Rate 20 30 H Blood Pressure 139/90 Pulse Oximetry 93 94 Oxygen Delivery Method Room Air MDM - URI/Sore Throat Differential Diagnosis Differential diagnosis: Likely upper respiratory infection, viral infection, influenza and other (Pneumonia, ACS, electrolyte abnormality) Lab Data 05/20/24 12:08 05/20/24 12:08 Labs: Lab Results 05/20/24 Range/Units 12:08 WBC 9.3 (4.5-11.0) X10^3/uL RBC 4.83 (4.5-5.9) X10^6/uL Hgb 13.2 L (13.5-17.5) g/dL Hct 39.8 L (41-53) % MCV 82.4 (80-100) fL MCH 27.3 (26-34) PG MCHC 33.2 (30-36) % RDW 14.7 (11.6-14.8) % Plt Count 206 (150-400) X10^3/uL Neut % (Auto) 75.1 H (50-75) % Lymph % (Auto) 8.1 L (25-40) % Williamson % (Auto) 14.5 H (3-14) % Eos % (Auto) 1.9 L (2-4) % Baso % (Auto) 0.4 (0-2) % Neut # (Auto) 7000 (6476-4504) /uL Lymph # (Auto) 800 L (1330-6067) /uL Williamson # (Auto) 1300 H (0-900) /uL Eos # (Auto) 200 (0-450) /uL Baso # (Auto) 0 (0-100) /uL PT 13.0 H (9.4-12.5) SECONDS INR 1.1 (0.9-1.3) APTT 34 (25.1-36.5) SECONDS Sodium 132 L (137-145) mmol/L Potassium 4.2 (3.4-5.1) mmol/L Chloride 99 (98-107) mmol/L Carbon Dioxide 26 (22-32) mmol/L BUN 24 H (9-20) mg/dL Creatinine 0.72 (0.66-1.25) mg/dL Estimated GFR > 60 (>60) mL/min BUN/Creatinine Ratio 33.3 H (6-22) Glucose 104 H (70-100) mg/dL Calcium 9.4 (8.4-10.2) mg/dL Magnesium 2.0 (1.6-2.3) mg/dL Total Bilirubin 0.9 (0.2-1.3) mg/dL AST 33 (17-59) IU/L ALT 18 (<50) IU/L Alkaline Phosphatase 84 (38-126) U/L Total Creatine Kinase 246 H (55-170) U/L Troponin I < 0.012 (0.01-0.034) ng/mL NT-Pro-B Natriuret Pep 21 (<125) pg/mL Total Protein 7.7 (6.3-8.2) g/dL Albumin 4.3 (3.5-5.0) g/dL Globulin 3.4 (1.7-4.1) g/dL Albumin/Globulin Ratio 1.3 (1.0-2.8) Lipase 18 L (23-300) U/L SARS-CoV-2 (PCR) Negative (Negative) Influenza A (RT-PCR) Flu a negative (NEGATIVE) Influenza B (RT-PCR) Flu b negative (NEGATIVE) RSV (PCR) Negative (Negative) Imaging Data Chest x-ray: Radiologist's Impression: PROCEDURE: XR CHEST 1V INDICATIONS: chest pain TECHNIQUE: One view of the chest was acquired. COMPARISON: None. FINDINGS: Surgical changes and devices: None. Lungs and pleura: Lungs are clear. No pleural effusions or pneumothorax. Mediastinum: Mediastinal contours appear normal. Heart size is normal. Bones and chest wall: No suspicious bony lesions. Overlying soft tissues appear unremarkable. IMPRESSION: ECG Data Attestation: I personally reviewed and interpreted this ECG as follows: Interpretation: EKG interpreted ED physician sinuses 73 beats per minute QTC 405, normal axis nonspecific ST changes no STEMI MDM Narrative Medical decision making narrative: Patient is a 58-year-old male history of polysubstance abuse on Suboxone, emphysema, asthma, comes in for several days of cough and shortness of breath. Is worried that he might be having a walking pneumonia. Here patient without leukocytosis, chest x-ray without any signs of pneumonia. He has not hypoxic he has not febrile, most likely viral given cough and symptoms does not require antibiotics, send patient home with albuterol inhaler given the fact that he states he does not have anymore. Instructed to follow up with pulmonology primary care in outpatient setting safe for discharge home with outpatient follow up Discharge Plan Departure Patient Disposition: Home Clinical Impression: Cough Activity Restrictions/Additional Instructions: Please read the discharge instructions sheet carefully and bring all papers to all doctor follow-up visits, as it may contain information that your doctor may want to see. Disease processes change and evolve, if your symptoms worsen or if you develop any new symptoms that are concerning to you please return for evaluation. Your evaluation today does not show any evidence of any life- threatening/serious illnesses requiring admission to the hospital or surgery. Please follow-up with your doctor for re-evaluation in approximately 1 day. Seek immediate medical attention for any worrisome symptoms. Prescriptions: New albuterol sulfate 90 mcg/actuation HFA aerosol inhaler 2 inh inhalation Q6H PRN (Reason: shortness of breath or wheezing) Qty: 8.5 0RF No Action albuterol sulfate 90 mcg/actuation HFA aerosol inhaler 2 puff inhalation Q6H PRN (Reason: shortness of breath or wheezing) Qty: 8.5 2RF amoxicillin-pot clavulanate [Augmentin] 500-125 mg tablet 1 tab PO TID Qty: 20 0RF Referrals: Jas Dove MD [Physician] - Samuel Kevin MD [Primary Care Provider] - Stand Alone Forms: Patient Portal/API
[2024-05-20 12:10] VITALS: PULSE 78; RESP 30; O2SAT 94
[2024-05-20 12:14] LABS: Add Manual Diff / Slide Review NO; Basophils Absolute Auto 0 /uL (0-100); Basophils Percent Auto 0.4 % (0-2); Eosinophils Absolute Auto 200 /uL (0-450); Eosinophils Percent Auto 1.9 % (2-4); Hematocrit 39.8 % (41-53); Hemoglobin 13.2 g/dL (13.5-17.5); Lymphocytes Absolute Auto 800 /uL (1100-4500); Lymphocytes Percent Auto 8.1 % (25-40); Mean Corpuscular HGB Conc 33.2 % (30-36); Mean Corpuscular Hemoglobin 27.3 PG (26-34); Mean Corpuscular Volume 82.4 fL (80-100); Monocytes Absolute Auto 1300 /uL (0-900); Monocytes Percent Auto 14.5 % (3-14); Neutrophils Absolute Auto 7000 /uL (1500-7000); Neutrophils Percent Auto 75.1 % (50-75); Platelet Count 206 X10^3/uL (150-400); Red Blood Cell Count 4.83 X10^6/uL (4.5-5.9); Red Cell Distribution Width 14.7 % (11.6-14.8); White Blood Cell Count 9.3 X10^3/uL (4.5-11.0)
[2024-05-20 12:22] LABS: INR 1.1 (0.9-1.3)
[2024-05-20 12:25] LABS: PTT Partial Thromboplastin Tim 34 SECONDS (25.1-36.5)
[2024-05-20 12:30] VITALS: BP 134/82; PULSE 74; RESP 27; O2SAT 93
[2024-05-20 12:39] LABS: Alanine Aminotransferase 18 IU/L (<50); Albumin 4.3 g/dL (3.5-5.0); Albumin Globulin Ratio 1.3 (1.0-2.8); Alkaline Phosphatase 84 U/L (38-126); Aspartate Aminotransferase 33 IU/L (17-59); BUN Creatinine Ratio 33.3 (6-22); Bilirubin Total 0.9 mg/dL (0.2-1.3); Blood Urea Nitrogen 24 mg/dL (9-20); Calcium 9.4 mg/dL (8.4-10.2); Carbon Dioxide 26 mmol/L (22-32); Chloride 99 mmol/L (98-107); Creatine Kinase 246 U/L (55-170); Estimated Glomerular Filt Rate > 60 mL/min (>60); Globulin 3.4 g/dL (1.7-4.1); Glucose 104 mg/dL (70-100); HEMOLYSIS < 15 (0-50); Lipase 18 U/L (23-300); Potassium 4.2 mmol/L (3.4-5.1); Sodium 132 mmol/L (137-145); Total Protein 7.7 g/dL (6.3-8.2)
[2024-05-20 12:50] LABS: Influenza A - CEPHEID Flu A NEGATIVE (NEGATIVE); Influenza B - CEPHEID Flu B NEGATIVE (NEGATIVE); NT-proBNP (BNP-Adult 18+) 21 pg/mL (<125); Respiratory Syncytial Virus Negative (Negative); Troponin I < 0.012 ng/mL (0.01-0.034)
[2024-05-20 12:55] LABS: COVID-19 CEPHEID 4-PLEX PCR Negative (Negative)
[2024-05-20 13:00] VITALS: BP 142/88; PULSE 72; RESP 25
== END 2024-05-20 13:08 | disposition home or self-care (01) ==
PROVIDERS: Emergency Provider Student in an Organized Health Care Education/Training Program; PCP Family Medicine
DX: R05.9 Cough, unspecified (principal); R07.9 Chest pain, unspecified; R79.89 Other specified abnormal findings of blood chemistry; Z11.52 Encounter for screening for COVID-19
CPT/HCPCS: 0241U; 36415; 71045; 80053; 82550; 83690; 83735; 83880; 84484; 85025; 85610; 85730; 93005; 93010; 99283; 99284